=== PATIENT | female | born 2005 | race Caucasian/White ===

== ENCOUNTER 2025-07-09 14:17 | Outpatient (CLI) | payer BC, SELFPAY ==
--- NOTE | 2025-07-09 15:00 | CRLHL7_ITS ---
For Patients: As a result of the Cures Act, medical imaging exams and procedure reports are released immediately into your electronic medical record. You may view this report before your referring provider. If you have questions, please contact your health care provider. OB ULTRASOUND BARTOLOME by US: 08/09/2025. GA: 35 w, 4 d. Single. Comparison: Outside facility. INDICATION: Measuring small for dates. TECHNIQUE: Real time grayscale imaging of the fetus was performed. Transabdominal. CERVIX: Not visualized. POSITIONING: Breech. AMNIOTIC FLUID: 4.4 cm. SDP (N: greater than 2 x 1 cm) BIOPHYSICAL PROFILE: 2: Gross body movements 2: tone 2: Respiratory activity 2: Amniotic fluid SDP (N: greater than 2 x 1 cm) 8/8: Total score PLACENTA: Technique: Transabdominal. PLACENTA POSITION: Posterior. DOPPLER: heart rate: 142 bpm. Umbilical artery: 1.9-2.2 S/D. Greater than 34 w=less than 3.5. BIOMETRY: BPD: 7.7 cm. 30 w, 5 d, <3%. HC: 30.5 cm. 33 w, 6 d, <3%. AC: 28.2 cm. 32 w, 2 d, <3%. FL: 6.0 cm. 31 w, 3 d, <3%. FL/AC ratio: 21.40%. HC/AC ratio: 1.08. EFW: 1888g. Weight: 4 lbs., 3 oz. age by this US: 32 w, 1 d. BARTOLOME by this US: 09/02/2025. Percentile by BARTOLOME: <3%. IMPRESSION: 1. Sonographic gestational age 32 weeks 1 day and sonographic due date 09/02/2025. Sonographic age is 24 days behind the clinical age. 2. Estimated weight less than 3rd percentile. All biometrics are less than 3rd percentile. 3. Biophysical profile score 8/8. 4. Spectral Doppler evaluation of the umbilical artery performed. S/D ratio 2.2. Huy Weinstein M.D. Diagnostic Radiologist [email or web address] ANIKET/tia weber/Dictated by: Huy Weinstein MD @ 07/09/2025 5:31:00 PM (Electronically Signed)
== END 2025-07-09 14:18 | disposition home or self-care (01) ==
LOC: US 14:18
PROVIDERS: PCP Student in an Organized Health Care Education/Training Program; Visit Provider Obstetrics & Gynecology
DX: O36.5930 Maternal care for other known or suspected poor fetal growth, third trimester, not applicable or unspecified (principal); Z3A.35 35 weeks gestation of pregnancy
CPT/HCPCS: 76815; 76819; 76820

== ENCOUNTER 2025-07-13 18:29 | Inpatient (IN) | payer BC, SELFPAY ==
[2025-07-13] VITALS (22 sets, daily range): BP systolic 111–169; BP diastolic 63–106; PULSE 63–98; RESP 12–22; TEMP 36.6–36.8; O2SAT 95–98; BMI 22.6
[2025-07-13 17:41] LABS: Appearance Urine Clear (Clear)
[2025-07-13 17:49] LABS: Amnisure Rom* POSITIVE
--- NOTE | 2025-07-13 18:29 | PM.OBPRCCS ---
Procedure Date of procedure: 07/13/25 Pre-op diagnosis: 1. 36 1/7 weeks 2. Spontaneous rupture of membranes 3. breech presentation 4. IUGR Post-op diagnosis: same Procedure Done: only Will [facility] bill your pro fee for this procedure?: Yes Blood Loss Measurement Type: QBL Bakri Used: No IV fluids (mL): 900 Urine Output (mL): 200 Urine Output Comment: clear Surgeon: Dayami Beauchamp MD Anesthesia Type: Spinal and TAP Block Findings: Live-born female, dara breech presentation, Apgars 9 and 9 at 1 and 5 minutes respectively. Weight 4 lb 13 oz. Normal-appearing uterus, ovaries, and fallopian tubes. Procedure Name: Primary low transverse section. Procedure Description: After obtaining informed consent, the patient was taken to the operating room where spinal anesthesia was obtained and found to be adequate. She was prepared and draped in the normal sterile fashion in the dorsal supine position with a leftward tilt. A Pfannenstiel skin incision was made with a scalpel. This incision was carried down to the underlying layer of fascia with the Bovie. The fascia was incised in the midline and the incision extended laterally. The superior and inferior aspects of the fascial incision were grasped with Sergio clamps, elevated and the underlying rectus muscles dissected off sharply and with electrocautery. The rectus muscles were then in the midline. The underlying peritoneum was entered bluntly and extended via blunt finger fractionation with good visualization of the bladder. The Jona O retractor was then placed into the incision. The lower uterine segment was then incised in a transverse fashion with the scalpel. Upon entry into the uterus, clear amniotic fluid was noted. The uterine incision was extended laterally with blunt finger fractionation. The infant's breech was delivered atraumatically, followed by the remainder of the 's body in had while maintaining neck flexion. The nose and mouth were suctioned with the bulb suction. The cord was doubly clamped and cut after 40 second delay, and the infant was handed off the field to Dr. Ramires for evaluation. The placenta was delivered spontaneously with umbilical cord traction and fundal massage. The uterus was cleared of all clots and debris. The uterine incision was reapproximated in a running locking fashion with a 0 chromic suture. A 2nd layer of the same suture was used to imbricate in horizontal fashion. The gutters were inspected and clots removed. All instruments and retractors were removed. The anterior peritoneum was reapproximated in a running fashion with a 3-0 Vicryl suture. The subfascial tissues were carefully inspected and hemostasis assured. The fascia was reapproximated in a running fashion with a looped 0 Maxon suture. The subcutaneous tissues were copiously irrigated. Hemostasis was assured. The skin was closed in a subcuticular fashion with 4-0 Vicryl. Surgical glue and dressing were applied. A TAP block was administered by the SYSTEMS SOFTWARE SPECIALIST. The patient tolerated the procedure well. Sponge, lap, needle, and instrument counts were reported as correct x2. The patient was taken to the recovery room, awake, and in stable condition. She did receive two grams of IV Ancef preoperatively and 30 mg IV Toradol at the conclusion of the procedure. Complications: None. Pathology: specimen obtained, sent to pathology (Placenta) Surgery Debrief Performed: Yes Condition: stable Disposition: floor
[2025-07-13 18:38] LABS: Hematocrit* 31.7 % (33.0-51.0); Hemoglobin* 10.5 gm/dL (12.0-16.0); Immature Granulocytes Pct Auto 6.5 %; Mean Corpuscular HGB Conc 33 gm/dL (32-36); Mean Corpuscular Hemoglobin 30 pg (26-34); Mean Corpuscular Volume 90 fL (80-100); RDW Coefficient of Variation % 14.4 % (11.5-15.5); Red Blood Count* 3.52 m/uL (4.00-5.20); White Blood Count* 13.13 K/uL (4.50-11.00)
[2025-07-13] MEDS: LACTATED RINGERS 1000 ML 1,000 ML 1200 ML IV (18:38)
[2025-07-13] MEDS: AZITHROMYCIN 500 MG in 0.9 % SODIUM CHLORIDE 250 ml 250 ML 255 MG IVPB (18:40)
[2025-07-13 18:47] LABS: Immature Granulocytes Abs Auto 0.90 K/uL (0.00-0.30); Lymphocytes Absolute Auto 2.30 K/uL (0.90-2.90); Slide Review Reflex No
--- NOTE | 2025-07-13 18:47 | P.OBHP_ITS ---
OB - H&P: HPI Labor/Induction History of Present Illness Date Seen: 07/13/25 Chief Complaint: Leakage of fluid Chief complaint: Maternity Narrative: Cecilia Gonzales is a 19 year old female 1 para 0000 at 36 weeks 1 day gestation by LMP confirmed with 7wk US, who presents with vaginal leaking. Reports that she started to have intermittent clear vaginal discharge starting at approximately 12PM today. She called into triage who recommended that she present to be evaluated in triage. History of Present Dating criteria: based on LMP care: good care Ultrasounds: normal 1st trimester US, normal mid trimester US and abnormal US findings Abnormal ultrasound findings: IUGR <3%ile during third trimester US Labs Blood type: A (+) positive Rubella: immune RPR/VDLR: nonreactive GBS status: unknown HBsAG: negative Review of Systems Status of ROS: Reports: 6 or more systems reviewed and unremarkable except as noted in History and below Meds Home Medications and Allergies Home Medications ?Medication ?Instructions ?Recorded ?Confirmed ?Type aspirin 81 mg tablet,delayed 81 mg PO DAILY 07/09/25 1 History release escitalopram oxalate 10 mg tablet 10 mg PO QAM 5 07/13/25 History ferrous sulfate 325 mg (65 mg 325 mg PO DAILY 07/09/25 07/13/25 History iron) tablet (FeroSul) vitamins no.154-ferrous tab PO 07/09/2507/11 History fumarate 27 mg-folic acid 1 mg tablet valacyclovir 500 mg tablet 500 mg PO BID 07/09/2506/20 History Allergies Allergy/AdvReac Type Severity Reaction Status Date / Time amoxicillin Allergy Intermediate Vomiting Verified 07/11/25 09:07 OB - H&P: Exam Physical Exam: Vital signs: Temp Pulse Resp BP Pulse Ox 98.2 F 89 12 123/73 97 07/13/25 16:57 07/13/25 16:57 07/13/25 16:57 07/13/25 16:57 07/13/25 16:57 Constitutional: Constitutional: no acute distress Routine HEENT Exam: Head: Present normocephalic Eye: Present normal appearance ENT: Present mucous membranes moist Routine Neck Exam: Neck: Present full ROM Routine Respiratory Exam: Respiratory: Present CTA bilaterally Routine Cardiovascular Exam: Cardiovascular: RRR, S1 and S2 Routine Abdominal Exam: Comments: gravid Routine Exam: Perineum Description: Normal Detailed Labor and Delivery Exam: Patient Gravid: yes Routine Extremities Exam: Extremities: Present normal inspection Routine Neurological Exam: Present alert Detailed Psychiatric Exam: Mood and affect: Present flat OB - Results Labs Labs: Urine 07/13/25 Range/Units 17:30 Urine Color Yellow (Yellow) Urine Appearance Clear (Clear) Urine pH 7.0 (5.0-8.5) Ur Specific [place] 1.010 (1.000-1.030) Urine Protein Negative (Negative) Urine Glucose (UA) Negative (Negative) OB - Problem Based A/P Additional Plan (1) premature rupture of membranes (PPROM) with onset of labor within 24 hours of rupture in third trimester, antepartum: Problem details: Cecilia Gonzales is a 19 year old female 1 para 0000 at 36 weeks 1 day gestation by LMP confirmed with 7wk US, who was admitted 07/13/25 for premature rupture of membranes. Status: Acute Plan: Transfer to [facility] due to need for section for breech presentation. (2) growth restriction: Problem details: Diagnosed at 35 weeks gestational age. All growth percentiles less than 3%. Status: Acute (3) Malpresentation of fetus: Problem details: Breech presentation in third trimester, reconfirmed breech presentation on admission. Status: Acute (4) Anemia affecting : Problem details: Last hemoglobin 10.7 on 06/19/25. On oral iron supplementation Status: Acute Plan: Consider hgb recheck post section. (5) Genital herpes: Problem details: History of genital herpes. No active lesions on exam on admission. Patient started valtrex yesterday for suppression. Status: Acute (6) Opioid use disorder in remission: Problem details: In remission for about 1.5 years. No longer on MAT. No opioid use during . Status: Acute Plan: Encourage adequate pain control. Caution with discharge with opioids. (7) Depression: Problem details: Controlled by 10mg lexapro. No acute mood concerns on presentation. Status: Acute Plan: Recommend continuing lexapro while inpatient. (8) Tobacco use affecting , antepartum: Problem details: Quit smoking during . Status: Acute Plan Patient will transfer care to [facility] for unscheduled primary section due to breech malpresentation. provider to attend delivery due to at 36wks, breech presentation, and IUGR < 3%ile. Delivery/Labor/Induction Plan Plan: Section
[2025-07-13 19:51] LABS: Cannabinoid Screen Urine Negative (Negative); Methamphetamines Screen Urine Negative (Negative); Tricyclic Antidepressant Urine Negative (Negative)
[2025-07-13] MEDS: LACTATED RINGERS 1000 ML 1,000 ML 125 ML IV ×2 (20:08→22:35)
--- NOTE | 2025-07-13 21:34 | P.ANES_ITS ---
Anesthesia Charges Start Date/Time Anesthesia Start Date: 07/13/25 Anesthesia Start Time: 19:45 Stop Date/Time Anesthesia Stop Date: 07/13/25 Anesthesia Stop Time: 21:16 Coding CPT Codes CPT Codes: ANESTH CS DELIVERY - 56987 ([id number]) P2 - PATIENT W/MILD SYST DISEASE, QZ - LEATHER PRODUCTION WORKER SVC W/O LINE MAINTAINER SECTION BY
--- NOTE | 2025-07-13 21:34 | W.ANESCHARGE ---
Anesthesia Charges Start Date/Time Anesthesia Start Date: 07/13/25 Anesthesia Start Time: 19:45 Stop Date/Time Anesthesia Stop Date: 07/13/25 Anesthesia Stop Time: 21:16 Coding CPT Codes CPT Codes: ANESTH CS DELIVERY - 96769 ([id number]) P2 - PATIENT W/MILD SYST DISEASE, QZ - RADIO TIME BUYER SVC W/O RETANNED LEATHER ROLLER BY
--- NOTE | 2025-07-13 21:35 | W.PM.NB ---
Nerve Block Nerve Block Time Seen by Provider: 21:05 Date Seen: 07/13/25 Type of block requested by surgeon for post-operative analgesia: TAP Side: bilateral Time out performed: Yes Verification of patient name: Yes Verification of date of : Yes Site marking: site marked Name of person performing procedure: Armando Johnson Continuous monitoring Was continuous monitoring of O2 sat, B/P, production floater, recorded every 15 minutes?: Yes Procedure Checklist: sterile prep, needles and gloves Ultrasound guided. Images saved: Yes Medications given in 5ml increments after negative aspiration: Marcaine %: 0.25 mL: 30 Needle gauge: 20 and Exparel mL: 10 Needle gauge: 20 Patient tolerated procedure well: Yes Additional comments: Injected in 5 mL increments after negative aspiration Block Charges Block Charge (with Pro Fee): TAP Bilateral Use of Ultrasound Machine for Block: Yes- US Guidance/pain block
[2025-07-13] MEDS: LABETALOL HCL 5 MG/ML inj IVP (22:39)
[2025-07-13] MEDS: MAGNESIUM IV 4 GM/100 ML PIGGYBACK IVPB (22:46)
[2025-07-13 22:55] LABS: Hematocrit* 33.0 % (33.0-51.0); Hemoglobin* 11.1 gm/dL (12.0-16.0); Mean Corpuscular HGB Conc 34 gm/dL (32-36); Mean Corpuscular Hemoglobin 30 pg (26-34); Mean Corpuscular Volume 90 fL (80-100); Red Blood Count* 3.67 m/uL (4.00-5.20); White Blood Count* 13.50 K/uL (4.50-11.00)
--- NOTE | 2025-07-13 22:57 | P.OBPN_ITS ---
OB - PN:Subj Subjective Date Seen: 07/13/25 Narrative: Notified by nursing staff of persistent severe range blood pressures, 160s over 100s. OB - PN: Obj Exam Physical Exam: Vital signs: Temp Pulse Resp BP Pulse Ox O2 Del Method 98 F 65 18 144/86 H 98 Room Air 07/13/25 21:15 07/13/25 22:33 07/13/25 22:33 07/13/25 22:47 07/13/25 22:33 07/13/25 21:42 Constitutional: Constitutional: no acute distress Routine Respiratory Exam: Comments: Normal respiratory effort Routine Cardiovascular Exam: Cardiovascular: Present RRR Routine Abdominal Exam: Fundus: Present firm Routine Extremities Exam: Extremities: Present normal inspection OB - PN: Obj Data Labs Labs: Laboratory Results - last 24 hr 07/13/25 07/13/25 07/13/25 17:30 18:30 19:35 WBC 13.13 H RBC 3.52 L Hgb 10.5 L Hct 31.7 L MCV 90 MCH 30 MCHC 33 RDW Coeff of Sarah 14.4 Plt Count 234 Neut % (Auto) 66.9 Lymph % (Auto) 17.4 L [place] % (Auto) 8.5 Eos % (Auto) 0.5 Baso % (Auto) 0.2 Neut # (Auto) 8.80 H Lymph # (Auto) 2.30 [place] # (Auto) 1.10 H Eos # (Auto) 0.10 Baso # (Auto) 0.00 Abs Immat Gran (auto) 0.90 H Imm/Tot Granulo (auto) 6.5 Urine Color Yellow Urine Appearance Clear Urine pH 7.0 Ur Specific [place] 1.010 Urine Protein Negative Urine Glucose (UA) Negative Urine Ketones Negative Urine Blood Negative Urine Nitrite Negative Urine Bilirubin Negative Urine Urobilinogen 0.2 Ur Leukocyte Esterase Negative Membrane Rupture POSITIVE Urine Opiates Screen Negative Ur Oxycodone Screen Negative Urine Methadone Screen Negative Ur Barbiturates Screen Negative U Tricyclic Antidepress Negative Ur Phencyclidine Scrn Negative Ur Amphetamines Screen Negative U Methamphetamines Scrn Negative U Benzodiazepines Scrn Negative Urine Cocaine Screen Negative U Marijuana (THC) Screen Negative Ur Drug Screen Comment See Note Blood Type A Positive Antibody Screen NEGATIVE OB - PN: A/P Delivery Assessment and Plan (1) Severe preeclampsia: Status: Acute Assessment and Plan: Labs were obtained, and are pending. Labetalol per protocol to treat severe range hypertension. We will initiate magnesium sulfate seizure prophylaxis for 24 hours. (2) Status post primary low transverse section: Problem details: for breech, suspected IUGR Status: Acute Plan day: 0 Plan: routine care
[2025-07-13 23:01] LABS: Slide Review Reflex No
[2025-07-13 23:02] LABS: Alanine Aminotransferase* 25 U/L (4-35); Aspartate Amino Transferase* 36 U/L (12-35); Blood Urea Nitrogen* 5 mg/dL (5-24); Creatinine* 0.4 mg/dL (0.6-1.2); Est. Creatinine Clearance* 187.13; Estimated Glomerular Filt Rate 146 ml/min
[2025-07-13] MEDS: ACETAMINOPHEN 500 MG TABLET 1000 MG PO (23:11)
[2025-07-13] MEDS: MAGNESIUM Infusion 40 GM/1,000 ML IV.SOLN IVPB (23:16)
[2025-07-14] VITALS (14 sets, daily range): BP systolic 100–124; BP diastolic 50–79; PULSE 69–88; RESP 16–18; TEMP 36.4–37; O2SAT 96–99
[2025-07-14] MEDS: ACETAMINOPHEN 500 MG TABLET 1000 MG PO ×4 (05:08→23:20)
[2025-07-14 05:18] LABS: Hematocrit* 29.7 % (33.0-51.0); Hemoglobin* 10.0 gm/dL (12.0-16.0); Mean Corpuscular HGB Conc 34 gm/dL (32-36); Mean Corpuscular Hemoglobin 30 pg (26-34); Mean Corpuscular Volume 90 fL (80-100); Red Blood Count* 3.31 m/uL (4.00-5.20); White Blood Count* 20.79 K/uL (4.50-11.00)
[2025-07-14 05:22] LABS: Alanine Aminotransferase* 24 U/L (4-35); Aspartate Amino Transferase* 33 U/L (12-35); Blood Urea Nitrogen* 5 mg/dL (5-24); Creatinine* 0.5 mg/dL (0.6-1.2); Est. Creatinine Clearance* 149.70; Estimated Glomerular Filt Rate 138 ml/min; Slide Review Reflex No
[2025-07-14] MEDS: DOCUSATE SODIUM 100 MG CAPSULE PO (09:00)
[2025-07-14] MEDS: ESCITALOPRAM 10 MG TABLET PO (09:00)
[2025-07-14 10:46] LABS: Hematocrit* 30.2 % (33.0-51.0); Hemoglobin* 10.1 gm/dL (12.0-16.0); Mean Corpuscular HGB Conc 33 gm/dL (32-36); Mean Corpuscular Hemoglobin 30 pg (26-34); Mean Corpuscular Volume 90 fL (80-100); Red Blood Count* 3.36 m/uL (4.00-5.20); White Blood Count* 19.77 K/uL (4.50-11.00)
[2025-07-14] MEDS: LACTATED RINGERS 1000 ML 1,000 ML 125 ML IV (11:00)
[2025-07-14 11:05] LABS: Alanine Aminotransferase* 27 U/L (4-35); Aspartate Amino Transferase* 35 U/L (12-35); Blood Urea Nitrogen* 5 mg/dL (5-24); Creatinine* 0.5 mg/dL (0.6-1.2); Est. Creatinine Clearance* 149.70; Estimated Glomerular Filt Rate 138 ml/min; Slide Review Reflex No
--- NOTE | 2025-07-14 13:21 | PM.OBPNVD1 ---
OB - PN:Subj Subjective Date Seen: 07/14/25 Interval history: [facility] patient, Dr. Flaherty. Patient comments OB post-: no complaints, pain well controlled, tolerating diet and flatus present Narrative: The patient is a 19-year-old 1 now para 0101 who is postoperative day #1 following a primary low transverse section last evening for breech presentation and SROM at 36 1/7 weeks gestation. The delivery was uncomplicated. , she experienced severe range blood pressures that required treatment. Magnesium sulfate infusion was initiated at 10:46 p.m. last evening, and she was also started on nifedipine ER 30 mg p.o. b.i.d.. She has been experiencing a brisk diuresis, with total urine output 4875 mL in the last 24 hours. The Mena catheter has not yet been removed due to the brisk diuresis. She generally feels well. Her pain is been well controlled with Tylenol, ibuprofen, and oxycodone. OB - PN: Obj Exam Physical Exam: Vital signs: Temp Pulse Resp BP Pulse Ox O2 Del Method 97.5 F L 84 16 107/66 97 Room Air 07/14/25 08:38 07/14/25 11:03 07/14/25 11:03 07/14/25 11:03 07/14/25 08:38 07/14/25 08:38 Constitutional: Constitutional: no acute distress Routine Neck Exam: Neck: Present normal inspection Routine Respiratory Exam: Respiratory: Present CTA bilaterally; Absent respiratory distress Routine Cardiovascular Exam: Cardiovascular: Present RRR; Absent murmur Routine Abdominal Exam: Abdominal: Present soft; Absent tenderness Fundus: Present firm Routine Extremities Exam: Extremities: Present normal inspection and pedal edema; Absent calf tenderness Routine Neurological Exam: Neurological: Present alert and oriented X3 Routine Psychiatric Exam: Psychiatric: Present normal affect Wound Management: Method: suture Examination: Present dressed, clean and dry Comments: Pfannenstiel incision OB - PN: Obj Data Labs Labs: Laboratory Results - last 24 hr 07/13/25 07/13/25 07/13/25 17:30 18:30 19:35 WBC 13.13 H RBC 3.52 L Hgb 10.5 L Hct 31.7 L MCV 90 MCH 30 MCHC 33 RDW Coeff of Sarah 14.4 Plt Count 234 Neut % (Auto) 66.9 Lymph % (Auto) 17.4 L [place] % (Auto) 8.5 Eos % (Auto) 0.5 Baso % (Auto) 0.2 Neut # (Auto) 8.80 H Lymph # (Auto) 2.30 [place] # (Auto) 1.10 H Eos # (Auto) 0.10 Baso # (Auto) 0.00 Abs Immat Gran (auto) 0.90 H Imm/Tot Granulo (auto) 6.5 BUN Creatinine Estimated Creat Clear Estimated GFR Magnesium AST ALT Urine Color Yellow Urine Appearance Clear Urine pH 7.0 Ur Specific [place] 1.010 Urine Protein Negative Urine Glucose (UA) Negative Urine Ketones Negative Urine Blood Negative Urine Nitrite Negative Urine Bilirubin Negative Urine Urobilinogen 0.2 Ur Leukocyte Esterase Negative Membrane Rupture POSITIVE Urine Opiates Screen Negative Ur Oxycodone Screen Negative Urine Methadone Screen Negative Ur Barbiturates Screen Negative U Tricyclic Antidepress Negative Ur Phencyclidine Scrn Negative Ur Amphetamines Screen Negative U Methamphetamines Scrn Negative U Benzodiazepines Scrn Negative Urine Cocaine Screen Negative U Marijuana (THC) Screen Negative Ur Drug Screen Comment See Note Blood Type A Positive Antibody Screen NEGATIVE 07/13/25 07/14/25 07/14/25 22:42 04:50 10:40 WBC 13.50 H 20.79 H 19.77 H RBC 3.67 L 3.31 L 3.36 L Hgb 11.1 L 10.0 L 10.1 L Hct 33.0 29.7 L 30.2 L MCV 90 90 90 MCH 30 30 30 MCHC 34 34 33 RDW Coeff of Sarah Plt Count 220 229 247 Neut % (Auto) Lymph % (Auto) [place] % (Auto) Eos % (Auto) Baso % (Auto) Neut # (Auto) Lymph # (Auto) [place] # (Auto) Eos # (Auto) Baso # (Auto) Abs Immat Gran (auto) Imm/Tot Granulo (auto) BUN 5 5 5 Creatinine 0.4 L 0.5 L 0.5 L Estimated Creat Clear 187.13 149.70 149.70 Estimated GFR 146 138 138 Magnesium 5.8 H* 6.3 H* AST 36 H 33 35 ALT 25 24 27 Urine Color Urine Appearance Urine pH Ur Specific [place] Urine Protein Urine Glucose (UA) Urine Ketones Urine Blood Urine Nitrite Urine Bilirubin Urine Urobilinogen Ur Leukocyte Esterase Membrane Rupture Urine Opiates Screen Ur Oxycodone Screen Urine Methadone Screen Ur Barbiturates Screen U Tricyclic Antidepress Ur Phencyclidine Scrn Ur Amphetamines Screen U Methamphetamines Scrn U Benzodiazepines Scrn Urine Cocaine Screen U Marijuana (THC) Screen Ur Drug Screen Comment Blood Type Antibody Screen OB - PN: A/P Delivery Assessment and Plan (1) Severe preeclampsia: Problem details: On magnesium sulfate infusion times 24 hours and nifedipine ER 30 mg b.i.d. Status: Acute (2) Status post primary low transverse section: Problem details: for breech, suspected IUGR Status: Acute Plan day: 1 Plan: routine care Comments: Magnesium sulfate infusion will be discontinued after 24 hours. Serial labs will be discontinued at that time as well.
[2025-07-14 15:53] LABS: Strep B DNA Probe POSITIVE (Negative)
[2025-07-14 17:20] LABS: Hematocrit* 29.8 % (33.0-51.0); Hemoglobin* 9.9 gm/dL (12.0-16.0); Mean Corpuscular HGB Conc 33 gm/dL (32-36); Mean Corpuscular Hemoglobin 30 pg (26-34); Mean Corpuscular Volume 91 fL (80-100); Red Blood Count* 3.29 m/uL (4.00-5.20); White Blood Count* 15.80 K/uL (4.50-11.00)
[2025-07-14 17:28] LABS: Slide Review Reflex No
[2025-07-14 17:36] LABS: Alanine Aminotransferase* 18 U/L (4-35); Aspartate Amino Transferase* 29 U/L (12-35); Blood Urea Nitrogen* 5 mg/dL (5-24); Creatinine* 0.6 mg/dL (0.6-1.2); Est. Creatinine Clearance* 124.75; Estimated Glomerular Filt Rate 133 ml/min
[2025-07-14] MEDS: MAGNESIUM Infusion 40 GM/1,000 ML IV.SOLN IVPB (18:37)
[2025-07-14] MEDS: SIMETHICONE 80 MG TAB.CHEW PO (19:30)
[2025-07-14 19:50] LABS: Strep B Susceptibility Needed? Yes
[2025-07-14] MEDS: VALACYCLOVIR HCL 500 MG TABLET PO (21:01)
[2025-07-14 22:53] LABS: Hematocrit* 32.4 % (33.0-51.0); Hemoglobin* 10.6 gm/dL (12.0-16.0); Mean Corpuscular HGB Conc 33 gm/dL (32-36); Mean Corpuscular Hemoglobin 30 pg (26-34); Mean Corpuscular Volume 91 fL (80-100); Red Blood Count* 3.56 m/uL (4.00-5.20); White Blood Count* 16.60 K/uL (4.50-11.00)
[2025-07-14 23:01] LABS: Slide Review Reflex No
[2025-07-14 23:07] LABS: Alanine Aminotransferase* 20 U/L (4-35); Aspartate Amino Transferase* 33 U/L (12-35); Blood Urea Nitrogen* 6 mg/dL (5-24); Creatinine* 0.6 mg/dL (0.6-1.2); Est. Creatinine Clearance* 124.75; Estimated Glomerular Filt Rate 133 ml/min
[2025-07-15] VITALS (7 sets, daily range): BP systolic 100–122; BP diastolic 58–81; PULSE 64–80; RESP 12–16; TEMP 36.8–37.2; O2SAT 95–97
[2025-07-15] MEDS: ACETAMINOPHEN 500 MG TABLET 1000 MG PO ×3 (05:46→18:07)
[2025-07-15] MEDS: VALACYCLOVIR HCL 500 MG TABLET PO (09:17)
[2025-07-15] MEDS: DOCUSATE SODIUM 100 MG CAPSULE PO (09:17)
[2025-07-15] MEDS: IBUPROFEN 600 MG TABLET PO ×3 (09:17→23:07)
[2025-07-15] MEDS: ESCITALOPRAM 10 MG TABLET PO (09:17)
--- NOTE | 2025-07-15 09:56 | PC.SOCIAL ---
Social Service Consult: SW met with patient to check-in and see if she needs any resources/supports. Patient reports she is doing well and has no concerns. Patient states this is the first grandchild and they have support from her family and partner's family. SW briefly discussed PMADS and patient states she is already connected with support for this and is taking Lexapro. SW to assist if needs/questions arise.
--- NOTE | 2025-07-15 17:12 | PM.OBPNVD1 ---
OB - PN:Subj Subjective Date Seen: 07/15/25 Interval history: [facility] patient, Dr. Flaherty. Narrative: The patient is a 19-year-old 1 now para 0101 who is postoperative day #2 s/p a primary low transverse section last evening for breech presentation and SROM at 36 1/7 weeks gestation. The delivery was uncomplicated. She was diagnosed with pre-eclampsia with severe features based on severe ranging BP. Currently, on magnesium sulfate infusion for seizure ppx until 10:46 p.m. Additionally, she was also started on nifedipine ER 30 mg p.o. b.i.d. Overnight patient had no complaints. Her pain is well controlled on oral pain medications. She is tolerating a regular diet. She has passed flatus. She is ambulating without difficulty. Lochia is scant. She is urinating without jeffery. Patient denies chest pain, SOB, n/v, headache, RUQ pain, vision changes, dizziness. OB - PN: Obj Exam Physical Exam: Vital signs: Temp Pulse Resp BP Pulse Ox O2 Del Method 98.2 F 80 12 100/58 L 95 Room Air 07/15/25 08:49 07/15/25 12:06 07/15/25 12:06 07/15/25 12:06 07/15/25 12:06 07/15/25 12:06 Narrative: Physical exam: General: No acute distress Psych: Alert and oriented x4, full affect HEENT: Normocephalic, atraumatic Heart: Regular rate and rhythm, no murmur rub or gallop Lungs: Clear to auscultation bilaterally Abdomen: Normoactive bowel sounds, soft, no tenderness, rebound, or guarding. Incision(s): Appropriately tender to palpation. Clean, dry, and intact. No erythema, induration, or abnormal discharge/breakdown Skin: No lesions or rashes Lower extremities: Trace bilateral lower extremity edema Pelvic exam: Scant lochia on pad OB - PN: Obj Data Labs Labs: Laboratory Results - last 24 hr 07/14/25 07/14/25 17:14 22:49 WBC 15.80 H 16.60 H RBC 3.29 L 3.56 L Hgb 9.9 L 10.6 L Hct 29.8 L 32.4 L MCV 91 91 MCH 30 30 MCHC 33 33 Plt Count 216 255 BUN 5 6 Creatinine 0.6 0.6 Estimated Creat Clear 124.75 124.75 Estimated GFR 133 133 Magnesium 6.9 H* 7.5 H* AST 29 33 ALT 18 20 OB - PN: A/P Delivery Assessment and Plan (1) Severe preeclampsia: Problem details: On magnesium sulfate infusion times 24 hours and nifedipine ER 30 mg b.i.d. Status: Acute Assessment and Plan: Pre-Eclampsia with SF - Based on severe raning BP requiring IV antihypertensive - BPs overnight: 100-110/60-70s - Symptoms: denies - Magnesium: on Magnesium for seizure ppx - IV antihypertensives: s/p 20 mg of IV labetalol 9 - PO antihypertensives: Nifedipine XL 30 mg BID - Pre-eclampsia labs on 07/14/26 @ 2245: Plt 255 Cr 0.6 ALT 20 AST 33 - UOP: 3.09 cc/kg/hr (2) Status post primary low transverse section: Problem details: for breech, suspected IUGR Status: Acute
[2025-07-16 01:26] VITALS: BP 120/76; PULSE 78; RESP 16; TEMP 37.2; O2SAT 96
[2025-07-16] MEDS: ACETAMINOPHEN 500 MG TABLET 1000 MG PO ×2 (01:28→08:42)
[2025-07-16 04:30] VITALS: BP 127/78; PULSE 63; RESP 16; TEMP 36.9; O2SAT 96
[2025-07-16] MEDS: IBUPROFEN 600 MG TABLET PO ×2 (04:33→11:37)
[2025-07-16 08:31] VITALS: BP 142/89; PULSE 62; RESP 16; TEMP 37.1; O2SAT 98
[2025-07-16] MEDS: DOCUSATE SODIUM 100 MG CAPSULE PO (08:41)
[2025-07-16] MEDS: ESCITALOPRAM 10 MG TABLET PO (08:42)
[2025-07-16 08:44] VITALS: BP 132/87
--- NOTE | 2025-07-16 11:07 | PM.OBDSVD1 ---
DS: Providers Provider Date Seen: 07/16/25 Date of admission: 07/13/25 18:29 Primary care physician: Janie Kelley MD Admitting Clinician: Dayami Beauchamp MD Consults: 07/13/25 18:10 Consult to [employer] [CONS] Routine Comment: Reason for Consult:: Home Health Assessment Attending Physician on discharge: Claudia Hewitt MD Date of Discharge: 07/16/25 DS: Diagnosis Discharge Diagnosis (1) Status post primary low transverse section: Status: Acute Problem details: for breech, suspected IUGR (2) Severe preeclampsia: Status: Acute Problem details: On magnesium sulfate infusion times 24 hours and nifedipine ER 30 mg b.i.d. (3) Opioid use disorder in remission: Status: Acute Problem details: In remission for about 1.5 years. No longer on MAT. No opioid use during . (4) Depression: Status: Acute Problem details: Controlled by 10mg lexapro. No acute mood concerns on presentation. (5) growth restriction: Status: Acute Problem details: Diagnosed at 35 weeks gestational age. All growth percentiles less than 3%. Exam Narrative: Exam Narrative: General: Pleasant, no acute distress Heart: Regular rate and rhythm, no murmur or gallop Lungs: Clear to auscultation bilaterally Abdomen: Soft, nontender, fundus well below umbilicus, normoactive bowel sounds Lower extremities: No edema or erythema Const: Vital Signs, click to edit/add: Vital Signs - 24 hr 07/15/25 12:06 07/15/25 16:30 07/15/25 20:24 Temperature 98.6 F 98.9 F Pulse Rate [Pulse Oximeter] 80 64 73 Respiratory Rate 12 16 16 Blood Pressure [Le ft Arm] 100/58 L 115/73 122/81 Pulse Oximetry 95 97 97 Oxygen Delivery Me thod Room Air Room Air Room Air 07/16/25 01:26 07/16/25 04:30 07/16/25 08:31 Temperature 98.9 F 98.5 F 98.7 F Pulse Rate [Pulse Oximeter] 78 63 62 Respiratory Rate 16 16 16 Blood Pressure [Le ft Arm] 120/76 127/78 142/89 H Pulse Oximetry 96 96 98 Oxygen Delivery Me thod Room Air Room Air Room Air 07/16/25 08:44 Temperature Pulse Rate [Pulse Oximeter] Respiratory Rate Blood Pressure [Le ft Arm] 132/87 Pulse Oximetry Oxygen Delivery Me thod OB - DS: Summary Hospital Course Hospital Course: Mona is a 19-year-old G1 now P 0-1-0-1 woman who presented on 07/13/2025 at 36 weeks, 1 day gestation with PPROM. Her was complicated by known growth restriction and breech presentation. She had an unscheduled on day of presentation. She was delivered of a female infant in dara breech presentation, weight 4 lb and 13 oz. Surgery was uncomplicated. She was diagnosed with preeclampsia with severe features shortly after delivery; diagnosis was based on severely elevated blood pressures. She was started on nifedipine ER 30 mg b.i.d. on the evening of 07/13/2025. She received 24 hours of magnesium sulfate infusion for seizure prophylaxis during her course. HELLP labs remained normal. Her last hemoglobin on postoperative day 2 was 10.6. She is breast feeding. Her daughter is doing quite well. She has had 1 mildly elevated blood pressure in the last 24 hours. Pain is managed with oral oxycodone. She is ambulating without difficulty. She is urinating without incident. She has had a bowel movement. Peripartum Data Procedures: Procedures Operation Date: 07/13/25 19:00 Actual Procedure Side Surgeon p Section Not Applicable Dayami Beauchamp MD [place] Infant Gender: Female Time Spent with Patient Time attestation: Total time spent providing and/or coordinating discharge services: Discharge Plan Discharge Disposition: Home, Self-Care Date of Admission: 07/13/25 18:29 Attending Provider on Discharge: Claudia Hewitt Primary Care Provider: Janie Kelley Condition: Stable Anticipated Discharge Date/Time: 07/16/25 14:47 Discharge Medications: New acetaminophen 500 mg Tablet 1,000 mg PO Q6H PRN (Reason: Pain) Qty: 0 0RF docusate sodium 100 mg Capsule 100 mg PO DAILY Qty: 0 0RF ibuprofen 600 mg Tablet 600 mg PO Q6H PRN (Reason: Pain) Qty: 0 0RF Lanolin (HPA) 100 % Cream 1 applic topical Q1H PRNQty: 0 0RF nifedipine 30 mg Tablet Extended Release 30 mg PO BID Qty: 40 0RF oxycodone 5 mg Tablet 5 - 10 mg PO Q4H PRN (Reason: Pain) Qty: 20 0RF Continued escitalopram oxalate 10 mg tablet 10 mg PO QAM PNV no.154-iron fumarate-folic 27 mg iron- 1 mg tablet PO Changed ferrous sulfate [FeroSul] 325 mg (65 mg iron) tablet 325 mg PO Q OTHER DAY Qty: 20 0RF Discontinued valacyclovir 500 mg tablet 500 mg PO BID aspirin 81 mg tablet,delayed release (DR/EC) 81 mg PO DAILY Discharge Orders: Discharge Order (Routine); Ordered 07/16/25 Ordered By: Claudia Hewitt Patient Education: Bupivacaine Liposome (By injection), OB High Blood Pressure DC, OB Over the Counter Medication Information, OB /Breast Feeding Activity Detail: No lifting greater than 20 lbs for 6 weeks. Discharge Diet: Regular Follow Up Appointments: [facility] [Provider Group] Janie Kelley MD [Primary Care Provider, Family Practice] Forms: MyHealth Info Instructions Discharge Comments: Follow-up Tuesday for blood pressure check in clinic
[2025-07-16 12:38] VITALS: BP 119/70; PULSE 88; RESP 16; O2SAT 98
== END 2025-07-16 15:44 | disposition home or self-care (01) | DRG 540 ==
LOC: OB OUT 18:29 → OB 18:29
PROVIDERS: Student in an Organized Health Care Education/Training Program; Admitting Provider Obstetrics & Gynecology; PCP Student in an Organized Health Care Education/Training Program; Visit Provider Obstetrics & Gynecology
PROC: 10D00Z1 Extraction of Products of Conception, Low, Open Approach (ICD-10-PCS; CPT 59514; principal; 2025-07-13 19:00)
DX: O42.013 Preterm premature rupture of membranes, onset of labor within 24 hours of rupture, third trimester (principal); O32.1XX0 Maternal care for breech presentation, not applicable or unspecified; O36.5930 Maternal care for other known or suspected poor fetal growth, third trimester, not applicable or unspecified; O14.15 Severe pre-eclampsia, complicating the puerperium; G89.18 Other acute postprocedural pain; O99.02 Anemia complicating childbirth; D64.9 Anemia, unspecified; O98.32 Other infections with a predominantly sexual mode of transmission complicating childbirth; A60.00 Herpesviral infection of urogenital system, unspecified; O99.344 Other mental disorders complicating childbirth; F32.A Depression, unspecified; F11.21 Opioid dependence, in remission; O99.334 Smoking (tobacco) complicating childbirth; F17.211 Nicotine dependence, cigarettes, in remission; Z3A.36 36 weeks gestation of pregnancy; Z37.0 Single live birth
CPT/HCPCS: 01961; 36415; 64488; 76942; 80306; 81003; 81513; 82565; 83735; 84112; 84450; 84460; 84520; 85018; 85025; 85027; 86592; 86850; 86900; 86901; 87081; 87186; 87481; 87653; 87661; 88307; A4314; A9270; J0456; J0665; J0666; J0690; J1100; J1630; J1885; J2371; J2405; J2590; J3475; J7050; J7120

== ENCOUNTER 2025-07-23 13:02 | Outpatient (CLI) | payer BC, SELFPAY ==
--- NOTE | 2025-07-23 16:23 | W.PM.LAC.MC ---
Consult Note - Mom Date of Visit Date of visit: 07/23/25 Reason for consultation: Assistance Needed Visit Code: Visit Patient's Information Phone number: [phone] : 1 Para: 1 Allergies amoxicillin Allergy (Intermediate, Verified 07/19/25 11:12) Vomiting Mother's Medical History: Medical History (Updated 07/17/25 @ 00:01 by Background Daemon) premature rupture of membranes (PPROM) with onset of labor within 24 hours of rupture in third trimester, antepartum ?O42.013 - premature rupture of membranes, onset of labor within 24 hours of rupture, third trimester (ICD-10) Anemia affecting ?O99.019 - Anemia complicating , unspecified trimester (ICD-10) Tobacco use affecting , antepartum ?O99.330 - Smoking (tobacco) complicating , unspecified trimester (ICD-10) growth restriction Malpresentation of fetus ?O32.9XX0 - Maternal care for malpresentation of fetus, unspecified, not applicable or unspecified (ICD-10) Work Plans: home with baby Delivery Information Delivery type: Primary C/S; Labored Gestational Age: 36+1 Gestational Weight For Age: AGA Weight: 2.19 kg Discharge Weight: 2.01 kg Percentage weight loss: 8 Baby's Information Baby's Age at Visit: 10 days Baby's Provider or Clinic: Dr. Warren Hooker Jaundice: No Past Experience Past Experience: No Current Frequency of Day Feedings: every 2-3 hrs day and night; avg 9x/day Both Breasts: Yes Suck: strong Latch: seems good Length of Time: 5-6 min on 1st side, then 2-3 on 2nd Goals: not sure yet Pumping Pumping: Yes Quantity Pumped: about 2 oz after every other feeding Supplementing EBM Supplement: Yes (taking 2 oz via bottle 5-6 times/day) Formula Supplement: No Baby Elimination Number of Wet Diapers a Day: 8 or more/day Number of BM a Day: 6-7/day Breast/Nipple Condition Breast Information: Breasts are symmetrical with rounded lower quadrants, intramammary distance is less than 1.5 inches. No erythema. Nipples are supple, everted prior to feeding. Breast Shape: Round Engorgement: No Maternal Nipple Condition - Left: Common Nipple Maternal Nipple Condition - Right: Common Nipple Sore Nipples: No Baby Assessment Skin: Normal Tongue/frenulum: Normal/elastic Palate: Average Lips: Relaxed and Symmetrical Jaw Alignment: Symmetrical Mucosa: [employer], moist Onsite Observation Pre-Feed weight: 2.212 kg Attachment/latch-on achieved: Not achieved (baby just fed 1.5 hrs ago and not interested in feeding) Assessments/Interventions Assessments/Interventions: Babe's current feeding routine includes every 2-3 hrs during the day and night Mom breastfeeds her 8-9x/day plus 2 bottles/day after feedings if baby still acts hungry Dad gives baby 3-4 bottles/noc Bottles are 2 oz each Babe not interested in feeding here so unable to assess milk transfer. Mom initially was able to pump 3-4 oz ea breast ea feeding now she is pumping 4 oz total (2 oz/breast) after each feeding. Discussed importance of continuuing to pump to maintain milk supply since we are not sure how much baby is transferring with feedings. Mom is comfortable with the pump and how to manage the settings. Baby is gaining weight well; has surpassed her birthweight at 10 days of age. Mom does report baby latches more easily to her left breast than right; her right nipple is a slightly different shape. Discussed holds she can try on her breast to assist baby to latch; mom will try this at home. Currently has an appt with Peds next week; recommend a f/u appt here in clinic in about 2 weeks to try and do a weighted feed for feeding guidance as baby gets older. Education provided: Early feeding cues to maximize timing of latching, Asymmetric latch technique for wide/deep latch to increase milk, Transfer for baby and increase comfort for mom, Supply/demand nature of milk supply, Need for frequent stimulation/milk removal, Alternative feeding methods (SNS, cup, finger feeding, bottling), Pumping for milk management and Milk collection, storage Follow-Up Suggested follow up: Appointment as needed Time Spent Time spent with patient (min): 60 Meds Home Medications and Allergies Home Medications ?Medication ?Instructions ?Recorded ?Confirmed ?Type escitalopram oxalate 10 mg tablet 10 mg PO QAM 07/09/25 07/19/25 History vitamins no.154-ferrous tab PO 07/09/25 07/19/25 History fumarate 27 mg-folic acid 1 mg tablet acetaminophen 500 mg tablet 1,000 mg (2 x 500 mg) PO Q6H PRN 07/16/25 07/19/25 Rx Pain #0 tabs ferrous sulfate 325 mg (65 mg 325 mg PO Q OTHER DAY #20 tabs 07/16/25 07/19/25 Rx iron) tablet (FeroSul) ibuprofen 600 mg tablet 600 mg PO Q6H PRN Pain #0 tabs 07/16/25 07/19/25 Rx nifedipine 30 mg tablet,extended 30 mg PO BID #40 tabs 07/16/25 07/19/25 Rx release oxycodone 5 mg tablet 5 - 10 mg (1 - 2 x 5 mg) PO Q4H 07/16/25 07/19/25 Rx PRN Pain #20 tabs Allergies Allergy/AdvReac Type Severity Reaction Status Date / Time amoxicillin Allergy Intermediate Vomiting Verified 07/19/25 11:12
== END 2025-07-23 13:03 | disposition home or self-care (01) ==
LOC: OB LAC 13:03
PROVIDERS: PCP Student in an Organized Health Care Education/Training Program; Visit Provider Student in an Organized Health Care Education/Training Program
DX: Z39.1 Encounter for care and examination of lactating mother (principal)
CPT/HCPCS: G0463

== ENCOUNTER 2025-07-25 18:26 | Emergency (ER) | payer BC, SELFPAY ==
--- OUTSIDE RECORDS SUMMARY | 2025-07-25 18:29 | XMS_ITS | Clinical Summary ---
Author Organization [employer] [facility] [employer] Address [address] [place] [id number] Care Team Providers Care Personal Attendant Name Role Phone Janie Kelley MD Primary Care Prov ider Allergies Active Allergy Reactions Criticality Noted Date Comments Amoxicillin-Pot Clavulanate Vomiting 02/21/20 25 Medications PNV no.95/ferrous fum/folic ac ( ORAL) Take by mouth. Active naloxone (Narcan) 4 mg/actuation nasal sprayIndications:O pioid use disorder, severe, in early remission (HC) Inhale 1 Laurel into affected nostril(s) each time if needed for Patient Diff To Arouse or Resp Rate < 8 / min (Overdose). Additional doses may be given every 2 to 3 minutes until emergency medical assistance arrives. 2 Each 01/17/20 25 Active Additional Information Patient not taking.Reported on 05/29/2025 escitalopram oxalate (LEXAPRO) 10 mg tabletIndications: Anxious depression Take 1 Tablet (10 mg) by mouth once daily in the morning. 90 Tablet 1 06/19/20 25 Active aspirin enteric coated 81 mg tabletIndications: Encounter for supervision of normal first in third trimester (HC),High risk teen in third trimester (HC) Take 1 Tablet (81 mg) by mouth once daily with a meal. 90 Tablet 3 06/19/20 25 Active ferrous sulfate 325 mg delayed release tabletIndications: Anemia during (HC) Take 1 Tablet (325 mg) by mouth once daily with a meal. 90 Tablet 3 06/28/20 25 Active valACYclovir (VALTREX) 500 mg tabletIndications: Herpes simplex vulvovaginitis Take 1 Tablet (500 mg) by mouth two times daily. 60 Tablet 07/03/20 25 Active Breast Pump PurchaseIndication s:Encounter for supervision of normal first in third trimester () Electric breast pump for home use. Gestational age at delivery: 35 weeks. Reason for need: Lactatin mother. Length of need: 99 months (lifetime use) 1 Each 07/05/20 25 Active ferrous sulfate 325 mg delayed release tabletIndications: Anemia during (HC) Take 1 Tablet (325 mg) by mouth once daily with a meal. 90 Tablet 3 06/25/20 25 025 Discontin ued(Reord er (E-cancel not sent)) Active Problems Problem Noted Date Diagnosed Date Poor growth affecting management of mother in third trimester 07/09/2025 Encounter for supervision of normal in first trimester 12/13/2024 Overview (12/13/2024): Estimated Date of Delivery: 08/03/25 Patient's last menstrual period was 10/27/2024. GBS: 28wk labs: Last Tdap: 12/27/2016 Last Flu vaccine: 06/25/2010 OB Labs: No Known Allergies OB History Para Term AB Living 1 0 0 0 0 0 SAB IAB Ectopic Multiple Live Births 0 0 0 0 0 # Outcome Date GA Lbr Jonathon/2nd Weight Sex Type Anes PTL Lv 1 Current Past Medical History: . Date Depression 2018 DMDD (disruptive mood dysregulation disorder) () 02/16/2022 Herpes 2020 No Significant Past Medical History Past Surgical History: . Laterality Date NO PREVIOUS SURGERY #1 Problems (from 12/13/24 to present) No problems associated with this episode. Surekha Gastelum RN ....12/13/2024 12:24 PM Opioid use disorder, severe, in early remission 2023 Controlled substance agreeme nt signed By Merari Rondon NP, psychiatry on 11/01/2023 11/10/2023 MARC (generalized anxiety disorder) 11/08/2023 Polysubstance use disorder 11/08/2023 Fentanyl dependence 10/03/2023 Methamphetamine abuse 11/13/2022 Laceration of right hand without foreign body Cannabis use disorder, moderate, dependence 01/19 Herpes simplex vulvovaginitis 10/12/2021 Overview (10/12/2021): September 2021. HSV-1. MDD (major depressive disord er), recurrent episode, moderate 10/13/2017 Post traumatic stress disorder (PTSD) 09/06/2017 Resolved Problems Problem Noted Date Diagnosed Date Resolved Date DMDD (disruptive mood dysregulation disorder) 02/17/20 22 11/13/2024 MARC (generalized anxiety disorder) 10/13/2017 09/04/2019 Encounters Date Type Department Care Team Description 07/25/2025 Nurse Triage [address] [address] Janie Kelley MD Care 07/25/2025 Telephone [facility] [address] [place] [address] Janie Kelley MD 07/23/2025 11:15 AM PRINCIPAL CLOUD ARCHITECT Office Visit [address] [address] Merari Rondon NP Failed Appointment 07/22/2025 11:15 AM PRINCIPAL CLOUD ARCHITECT Ancillary Procedure [address] [address] Arrived 07/22/2025 9:50 AM PRINCIPAL CLOUD ARCHITECT Office Visit [address] [address] Janie Kelley MD Care 07/22/2025 Travel 07/15/2025 Lab Requisition [facility] [phone] Dayami Beauchamp MD 07/13/2025 Orders Only [facility] Scanner 1 scan: (1-Ord) [facility], AUNG DOMINGUEZ , 07/13/2025 07/12/2025 1:00 PM CDT Nurse/Clinic Staff Only [address] [place] [address] Procedure (NST) 07/12/2025 Travel 07/09/2025 Orders Only [facility] Scanner 1 scan: (1-Ord) [facility], OB LIMITIED, 07/09/2025 07/09/2025 Telephone [facility] [address] [place] [address] Janie Kelley MD Appointment 07/03/2025 10:40 AM CDT OB Encounter [address] [place] [address] Janie Kelley MD Care (34 weeks 5 days) 07/03/2025 Travel 06/25/2025 1:15 PM CDT Office Visit [address] [place] [address] Merari Rondon NP Follow Up; Medication Management 06/25/2025 Telephone [facility] [address] [place] [address] Janie Kelley MD Med Change Request (ferrous sulfate ) 06/25/2025 Travel 06/19/2025 10:40 AM CDT OB Encounter [facility] [address] [place] [address] Janie Kelley MD Care (32+5) 06/19/2025 Travel 06/05/2025 10:40 AM CDT OB Encounter [address] [address] Janie Kelley MD Care (30w 5days//nipple discharge?/US?); Medication Management (Herpes medication start?/medication interfering with /) 06/04/2025 10:15 AM CDT Office Visit [address] [address] Merari Rondon NP Follow Up; Medication Management 06/04/2025 Travel 05/29/2025 3:15 PM CDT Office Visit [facility] [address] [place] [address] Yoel Hope MD Depression (Concerns with depression - patient is , but would like medication to treat this if possible) 05/29/2025 Travel 05/23/2025 1:30 PM CDT Nurse/Clinic Staff Only [facility] [address] [place] [address] Infusion Therapy (Feraheme 09/19) 05/22/2025 10:40 AM CDT OB Encounter [facility] [address] [place] [address] Janie Kelley MD Care (28 weeks 5 days ) 05/22/2025 Travel 05/15/2025 Nurse Triage [facility] [address] [place] [address] Janie Kelley MD Vaginal Discharge 05/14/2025 Telephone [facility] [address] [place] [address] Janie Kelley MD Injection (Medication); Infusion Therapy 05/08/2025 10:40 AM CDT OB Encounter [facility] [address] [place] [address] Janie Kelley MD Care (26 weeks 5 days /patient states no concerns) 05/08/2025 Travel from Last 3 Months Immunizations Immunization Administration Dates Next Due DTaP 04/28/2010,06/06/2007 [id number] (Pediarix) 06/16/2006,04/15/2006,0 02/16/2006 DTaP-IPV (Kinrix) 06/25/2010 HIB PRP-T (ActHIB,Hiberix) 06/06/2007,,04/15/2006,02/16 HPV 9 (Gardasil 9) 06/25/2021,06/13/2020 Hepatitis A (Peds) 06/25/2010,04/28/2010, 008 Inactivated Polio Vaccine 04/28/2010 Influenza,LAIV4 Live Intrana theresa (Flumist) 06/25/2010 MENINGOCOCCAL VACCINE 2 VIAL 2MO-55YO (MENVEO) 02/16/2022,05/29/2018 MMR 06/25/2010,04/28/2010,12/23/2006 Pneumococcal conj 13-Valent (Prevnar 13) 12/23/2006,06/16/2006,04/15/2006,02/16 Tdap 05/22/2025,12/27/2016 Varicella Vaccine 06/25/2010,04/28/2010,12/24/19 07 Family History Medical History Relation Name Comments Good Health Brother Chalin Anxiety disorder Father Depression Father Hypertension Father Anxiety disorder Mother Depression Mother Polycystic ovary syndrome Mother Good Health Sister 1 Chantell Good Health Sister 2 Shama Good Health Sister 3 Cristino Relation Name Status Comments Brother Chalin Alive Father Mother Sister 1 Chantell Alive Sister 2 Shama Alive Sister 3 Adley Alive Social History Tobacco Use Types Packs/Day Years Used Date Smoking Tobacco: Former Cigarettes 0.3 2.5 S tarted: 01/2023 Smokeless Tobacco: Current Tobacco Cessation:Ready to Q uit: Not Asked; Counseling Given: Not Answered Comments:tobacco pouches Alcohol Use Standard Drinks/Week Comments Not Currently 0 (1 standard drink = 0.6 oz pur e alcohol) PHQ-2 Answer Date Recorded PHQ-2 TOTAL SCORE 2 06/25/2025 Social Connections Answer Date Recorded Do you often feel lonely or isolated from those around you? 0 01/16/2025 Alcohol Use Answer Date Recorded How often do you have a drink containing alcohol ? 0 07/03/2025 How many drinks containing a lcohol do you have on a typical day when you are drinking? 0 07/03/2025 Frequency of Binge Drinking Not on file 06/19 Financial Resource Strain Answer Date R ecorded Difficulty of Paying Living Expenses 3 01/16/2025 Difficulty of Paying Living Expenses Not on file 01/16/2025 Food Insecurity Answer Date Recorded Do you worry your food will run out before you are able to buy more? 1 01/16/2025 Transportation Needs Answer Date Record ed Does lack of transportation keep you from medica l appointments? 1 01/16/2025 Does lack of transportation keep you from work, meetings or getting things that you need? 1 01/16/2025 Housing Stability Answer Date Recorded What is your housing situation today? 1 01/16/2025 Utilities Answer Date Recorded Do you have trouble paying f or utilities (for example, heat, electricity, water, phone)? 1 01/16/2025 Comments No Sex and Gender Information Value Date Recorded Sex Assigned at Not on file Legal Sex Female 1:46 PM PRINCIPAL CLOUD ARCHITECT Gender Identity Not on file Sexual Orientation Not on file Obstetrics History Para Term AB IAB SAB Ectopic Multiple Livin g Live Births 1 0 0 0 0 0 0 0 0 0 0 Date Outcome GA Total Labor Labor/2nd/3rd Weight Sex Type Anes PTL Bertha A1 A5 Name Clin Summary Episode Dates Number of Fetuses Estimated Date of Delivery 12/13/2024 - Present (07/25/2025) 08/09/2025 (set by Surekha Gastelum, BRE on 12/25/2024 based on Alternate BARTOLOME Entry) Dating Summary Based On BARTOLOME GA Diff Last Menstrual Period on 10/27/2024 08/03/2025 +6d Alternate BARTOLOME Entry 08/09/2025 Working Vitals Pregravid Weight Height TWG (As of 07/25/2025) Pregrav id BMI 1.601 m (5' 3.03) Notes Progress Notes - OB Encounte r - 07/03/2025 - GA:34w5d 07/03/2025 - 34w5d - Janie Kelley MD S: Patient 19 y.o. at 34w5d here today for routine visit. Doing well, no concerns, taking PNV's and asa. She has been doing exercises for breech presentation, does not believe she has flipped.. Worsening nausea and heartburn. Had some right upper quadrant pain with prolonged standing. Good movement. No vaginal bleeding/discharge, loss of fluid, contractions, dysuria or other urinary symptoms. No headache, vision changes, epigastric pain, facial or extremity edema. -specific history: Anxiety, PTSD and MDD. Started on Lexapro 10mg daily at 29w with PHQ9 14 / MARC 16. She has fleeting thoughts of SI. Has referral to psychology. Sees Edie Rondon for psychiatry. Stressors include: Loss of brother via overdose in early and expectant childbirth. History of opioid use disorder in early remission. Sober for >9+ months. Occasional cravings. Marijuana use / tobacco use occasionally. More with nausea. Quitting cannabis and tobacco. History of herpes. Plan for Valtrex (500mg twice daily) at 36 weeks (07/12). Pre-E risk --> nulliparity, sociodemographics. Start aspirin at 12 weeks. Anemia in . Hemoglobin 10.0 at 26 weeks, given 1 dose IV fereheme. Breech presentation at 32w5d confirmed via POCUS. Monitor at each visit and refer to OB if breech at 36 weeks. O: See flowsheet. POCUS presentation: The patient verbally consented to receive a bedside point of care ultrasound (POCUS) to confirm presentation to prepare for delivery. The patient was informed that a POCUS is not a comprehensive obstetric ultrasound but rather a limited bedside tool to answer a single clinical question, in this case, whether the fetus is in the cephalic position. If the fetus is in the breech or transverse position, they will be referred to OB for discussion of ECV vs a section. POCUS exam today demonstrates breech heart activity is present with a rate of 120 beats per minute. A/P: 19 y.o. at 34w5d, doing well. (Z34.03) Encounter for supervision of normal first in third trimester (HC) (primary encounter diagnosis) (O09.893) High risk teen in third trimester (HC) (O32.1XX0) Breech presentation, single or unspecified fetus (HC) (A60.04) Herpes simplex vulvovaginitis - Referral to [employer]ING VALIDATION CONSULTANT to consider ECV vs c/s for breech presentation. - Start valtrex on 07/12, sent prescription to pharmacy. - Reviewed labor precautions. - Return in 2wks for OB FU. Janie Kelley MD .................... 07/03/2025 11:42 AM Progress Notes - OB Encounte r - 06/19/2025 - GA:32w5d 06/19/2025 - wd - Janie Kelley MD S: Patient 19 y.o. at 32w5d here today for routine visit. Doing well, no concerns, taking PNV's and aspirin. Not taking oral iron. Completed 1 fereheme infusion. Anxiety. On lexapro. Stable. Ok with dose right now. No nausea. Good movement. No vaginal bleeding/discharge, loss of fluid, contractions, dysuria or other urinary symptoms. No headache, vision changes, RUQ or epigastric pain, facial or extremity edema. -specific history: Anxiety, PTSD and MDD. Started on Lexapro 10mg daily at 29w with PHQ9 14 / MARC 16. She has fleeting thoughts of SI. Has referral to psychology. Sees Edie Rondon for psychiatry. Stressors include: Loss of brother via overdose in early and expectant childbirth. History of opioid use disorder in early remission. Sober for >9 months. Occasional cravings. Marijuana use / tobacco use occasionally. More with nausea. Quitting cannabis and tobacco. History of herpes. Plan for Valtrex (500mg twice daily) at 36 weeks (07/12). Pre-E risk --> nulliparity, sociodemographics. Start aspirin at 12 weeks. Anemia in . Hemoglobin 10.0 at 26 weeks, given 1 dose IV fereheme. Breech presentation at 32w5d confirmed via POCUS. Monitor at each visit and refer to OB if breech at 36 weeks. O: See flowsheet. POCUS presentation: The patient verbally consented to receive a bedside point of care ultrasound (POCUS) to confirm presentation to prepare for delivery. The patient was informed that a POCUS is not a comprehensive obstetric ultrasound but rather a limited bedside tool to answer a single clinical question, in this case, whether the fetus is in the cephalic position. If the fetus is in the breech or transverse position, we will reassess at next visit and will be referred to OB for discussion of ECV vs Caesarian section if she remains breech. POCUS exam today demonstrates breech position. A/P: (Z34.03) Encounter for supervision of normal first in third trimester (HC) (primary encounter diagnosis) (O99.019) Anemia during (HC) (O32.1XX0) Breech presentation, single or unspecified fetus (HC) (O09.893) High risk teen in third trimester (HC) (F41.8) Anxious depression - 19 y.o. at 32w5d, doing well. - Breech presentation today. Provided exercises to try at home thru [employer]. Reviewed if remains breech, she would need consult with OB to discuss ECV vs c/s at 36 weeks. - Anemia in . Recheck hemoglobin today. - Anxiety/depression. Refilled lexapro 10mg daily. - Reviewed labor precautions, non-pharm pain management options, birthing classes - Return in 2wks for OB FU. Janie Kelley MD .................... 06/19/2025 10:54 AM Progress Notes - OB Encounte r - 06/05/2025 - GA:30w5d 06/05/2025 - 30wd - Janie Kelley MD S: Patient 19 y.o. at 30w5d here today for routine visit. Doing well, taking PNV's and aspirin. Started on Lexapro on 05/30. Partner states she is less snappy. Has been on for about 1 week. Has colostrum leakage from breast. Has had a couple cramps in the right abdomen lower. 2-3 times. Ripley like period cramping, couple minutes. Using nicotine pouches (8mg each, 2 throughout day, leaves in for 25-45 minutes). Stopped smoking cigarettes. She has had gingivitis. Good movement. No vaginal bleeding/discharge, loss of fluid, dysuria or other urinary symptoms. No headache, vision changes, RUQ or epigastric pain, facial or extremity edema. -specific history: History of opioid use disorder in early remission. Sober for >9 months. Occasional cravings. Anxiety, PTSD and MDD. Started on Lexapro 10mg daily at 29w with PHQ9 14 / MARC 16. She has fleeting thoughts of SI. Has referral to psychology. Sees Edie Rondon for psychiatry. Stressors include: Loss of brother via overdose in early and expectant childbirth. Marijuana use / tobacco use occasionally. More with nausea. Quitting cannabis and tobacco. History of herpes. Plan for Valtrex (500mg twice daily) at 36 weeks (07/12). Pre-E risk --> nulliparity, sociodemographics. Start aspirin at 12 weeks. Anemia in . Hemoglobin 10.0 at 26 weeks, given 1 dose IV fereheme. O: See flowsheet. Exam: erythematous and edematous gums, no visible white plaques. A/P: (Z34.03) Encounter for supervision of normal first in third trimester (HC) (primary encounter diagnosis) (F41.1) MARC (generalized anxiety disorder) (F33.1) MDD (major depressive disorder), recurrent episode, moderate (HC) (Z72.0) Nicotine use (O99.019) Anemia during (HC) (K05.10) Gingivitis - 19 y.o. at 30w5d, doing well. - Start nystatin for possible oral candidiasis. Has dental appt at beginning of Jun. - MDD/MARC. Continue lexapro. Schedule psychology appt. - Anemia in s/p iron infusion. Repeat hemoglobin at next visit. - H/o genital herpes, start valtrex 500mg twice daily at 36 weeks. - Colostrum leakage is normal. Advised against nipple/breast stimulation. Ok to catch leaking colostrum to freeze. - Discussed labor / classes and groups available in the community. - Return in 2wks for OB FU. Janie Kelley MD .................... 06/05/2025 11:01 AM Progress Notes - OB Encounte r - 05/22/2025 - GA:28w5d 05/22/2025 - 28wd - Janie Kelley MD S: Patient 19 y.o. at 28w5d here today for routine visit. Doing well, no concerns.. No nausea. Good movement. No vaginal bleeding/discharge, loss of fluid, contractions, dysuria or other urinary symptoms. No headache, vision changes, RUQ or epigastric pain, facial or extremity edema. -specific history: History of opioid use disorder in early remission. Sober for >9 months. Occasional cravings. Anxiety, PTSD and MDD. No current medications. Depression has been better. PTSD is similar to previous. Mental health overall is doing better. Loss of brother via overdose in early . Marijuana use / tobacco use occasionally. More with nausea. Quitting cannabis and tobacco. History of herpes. Plan for Valtrex at 36 weeks. Pre-E risk --> nulliparity, sociodemographics. Start aspirin at 12 weeks. O: See flowsheet. A/P: (Z34.03) Encounter for supervision of normal first in third trimester (HC) (primary encounter diagnosis) - 19 y.o. at 28w5d, doing well. - Tdap today - Reviewed labor precautions. - Return in 2wks for OB FU. Janie Kelley MD .................... 05/22/2025 2:55 PM Progress Notes - OB Encounte r - 05/08/2025 - GA:26w5d 05/08/2025 - - Janie Kelley MD S: Patient 19 y.o. at 26w5d here today for routine visit. Doing well, no concerns, taking PNV's and aspirin - has not taken in the last 2 weeks. No nausea. Good movement, very activity. Pretty cardoza Continues to laugh a lot and gets pretty snappy quickly. No vaginal bleeding/discharge, loss of fluid, contractions, dysuria or other urinary symptoms. No headache, vision changes, RUQ or epigastric pain, facial or extremity edema. -specific history: History of opioid use disorder in early remission. Sober for >9 months. Occasional cravings. Anxiety, PTSD and MDD. No current medications. Depression has been better. PTSD is similar to previous. Mental health overall is doing better. Loss of brother via overdose in early . Marijuana use / tobacco use occasionally. More with nausea. Quitting cannabis and tobacco. History of herpes. Plan for Valtrex at 36 weeks. Pre-E risk --> nulliparity, sociodemographics. Start aspirin at 12 weeks. O: See flowsheet. A/P: (Z34.02) Encounter for supervision of normal first in second trimester (HC) (primary encounter diagnosis) - 19 y.o. at 26w5d, doing well. - GTT, hemoglobin, treponema today - Reviewed labor precautions. - Return in 2 wks for OB FU. Janie Kelley MD .................... 05/08/2025 11:18 AM Progress Notes - OB Encounte r - 04/10/2025 - GA:22w5d 04/10/2025 - wd - Janie Kelley MD S: Patient 19 y.o. at 22w5d here today for routine visit. Doing well, no concerns, taking PNV's and aspirin. Wonders about epidural and effectiveness of fentanyl with h/o opioid use.. No nausea. Good movement. No vaginal bleeding/discharge, loss of fluid, contractions, dysuria or other urinary symptoms. No headache, vision changes, RUQ or epigastric pain, facial or extremity edema. -specific history: History of opioid use disorder in early remission. Sober for >9 months. Occasional cravings. Anxiety, PTSD and MDD. No current medications. Depression has been better. PTSD is similar to previous. Mental health overall is doing better. Loss of brother via overdose in early . Marijuana use / tobacco use occasionally. More with nausea. Quitting cannabis and tobacco. History of herpes. Plan for Valtrex at 36 weeks. Pre-E risk --> nulliparity, sociodemographics. Start aspirin at 12 weeks. O: See flowsheet. A/P: 19 y.o. at 22w5d, doing well. (Z34.02) Encounter for supervision of normal first in second trimester (HC) (primary encounter diagnosis) - Next visit: 1 hr GTT, hemoglobin, treponema - Reviewed labor precautions. - Return in 4wks for OB FU. Janie Kelley MD .................... 04/10/2025 11:05 AM Progress Notes - OB Encounte r - 03/13/2025 - GA:18w5d 03/13/2025 - wd - Lashell Santillan Patient stopped at my desk to schedule - scheduled 03/27/25 Lashell Santillan .................... 03/13/2025 11:49 AM 03/13/2025 - d - Janie Kelley MD S: Patient 19 y.o. at 18w5d here today for routine visit. Doing well, no concerns, taking PNV's and aspirin. States her brother just by overdose. She is doing as well as can be. States she has headaches related to stress that resolve. No nausea. Has some movment movement. No vaginal bleeding or significant discharge, loss of fluid, contractions, dysuria or other urinary symptoms. No vision changes, RUQ or epigastric pain, facial or extremity edema. -specific history: History of opioid use disorder in early remission. Sober for >9 months. Occasional cravings. Anxiety, PTSD and MDD. No current medications. Depression has been better. PTSD is similar to previous. Mental health overall is doing better. Loss of brother via overdose in early . Marijuana use / tobacco use occasionally. More with nausea. Quitting cannabis and tobacco. History of herpes. Plan for Valtrex at 36 weeks. Pre-E risk --> nulliparity, sociodemographics. Start aspirin at 12 weeks. O: See flowsheet. A/P: 19 y.o. at 18w5d, doing well. (Z34.01) Encounter for supervision of normal first in first trimester (HC) (primary encounter diagnosis) - Order for anatomy US. - Schedule 1 hr GTT, hemoglobin, treponema in 6-8 weeks - Reviewed labor precautions. - Return in 4wks for OB FU. Janie Kelley MD .................... 03/13/2025 11:32 AM Progress Notes - OB Encounte r - 02/20/2025 - GA:15w5d 02/20/2025 - 15w5d - Janie Kelley MD S: Patient 19 y.o. at 15w5d here today for routine visit. Doing well, no concerns, taking PNV's. Has not been taking aspirin as forgetful No nausea. Has not felt movement. No vaginal bleeding/discharge, loss of fluid, contractions, dysuria or other urinary symptoms. No headache, vision changes, RUQ or epigastric pain, facial or extremity edema. -specific history: History of opioid use disorder in early remission. Sober for >9 months. Occasional cravings. Anxiety, PTSD and MDD. No current medications. Depression has been better. PTSD is similar to previous. Mental health overall is doing better. Marijuana use occasionally. More with nausea. History of herpes. Plan for Valtrex at 36 weeks. Pre-E risk --> nulliparity, sociodemographics. Start aspirin at 12 weeks. O: See flowsheet. A/P: 19 y.o. at 15w5d, doing well. (Z34.01) Encounter for supervision of normal first in first trimester () (primary encounter diagnosis) (O09.891) High risk teen in first trimester (HC) - Panorama today. - Anatomy scan at 20 weeks - Reviewed labor precautions. - Return in 4wks for OB FU. Janie Kelley MD .................... 02/20/2025 11:14 AM Progress Notes - OB Encounte r - 01/16/2025 - GA:10w5d 01/16/2025 - wd - Janie Kelley MD Clinic Note: First OB Visit 01/16/2025 Cecilia Gonzales is a 19 y.o. with Estimated Date of Delivery: 08/09/25, here today for a first visit. She is doing well, with mild nausea in morning. No bleeding, discharge, or pain. Takes vitamin. Nausea History of opioid use disorder in early remission. Sober for >9 months. Occasional cravings. Anxiety, PTSD and MDD. No current medications. Depression has been better. PTSD is similar to previous. Mental health overall is doing better. Marijuana use occasionally. More with nausea. History of herpes. Plan for Valtrex at 36 weeks. SOCIAL HISTORY Marital Status: partnered Occupation: not currently employed /Father of baby: Rubén (boyfriend) MENSTRUAL HISTORY Patient's last menstrual period was 10/27/2024.: Cycle Regularity: irregular, every other month. Menarche (age onset): 13 years of age OBSTETRICS HISTORY Previous Pregnancies: never MEDICAL HISTORY Medical, surgical, family, and social history reviewed today and updated if necessary. Past Medical History: . Date Depression 2017 DMDD (disruptive mood dysregulation disorder) () 02/16/2022 Herpes 2020 No Significant Past Medical History Past Surgical History: . Laterality Date NO PREVIOUS SURGERY Patient has no known allergies. Family History Problem Relation Age of Onset Anxiety disorder Mother Depression Mother Polycystic ovary syndrome Mother Hypertension Father Anxiety disorder Father Depression Father Good Health Sister Good Health Sister Good Health Sister Good Health Brother Current Outpatient Medications: mirtazapine 7.5 mg tablet, Take 1/2-1 tablet (3.75-7.5 mg) by mouth 1-2 times daily as needed for anxiety/panic, Disp: 30 Tablet, Rfl: 1 naloxone (Narcan) 4 mg/actuation nasal spray, Inhale 1 Laurel into affected nostril(s) each time if needed for Patient Diff To Arouse or Resp Rate < 8 / min (Overdose). Additional doses may be given every 2 to 3 minutes until emergency medical assistance arrives. (Patient not taking: Reported on 11/13/2024), Disp: 2 Each, Rfl: 0 PNV no.95/ferrous fum/folic ac ( ORAL), Take by mouth., Disp: , Rfl: Medications have been reviewed by me and are current to the best of my knowledge and ability. REVIEW OF SYSTEMS: General- No fevers, chills, or night sweats. No unintended weight gain/loss. Appetite NL. HEENT- No sinus pain, visual change, congestion or throat pain. No epistaxis or ear pain or drainage. No changes in vision (blurry vision, diplopia, etc) CV- No chest pain, palpitations, change in exercise tolerance. No leg claudication. Lungs- No dyspnea or cough. No hemoptysis. No shortness of breath. GI- No constipation or diarrhea. Denies GERD sx's. No melena or hematochezia. - No dysuria, frequency, nocturia or hematuria Musculoskeletal-right hip and low back pain. No joint pain or noticeable erythema or swelling. No myalgias. Neuro- No headaches, numbness, tingling, dizziness, lightheadedness, change in strength or in speech. No focal weakness. Heme- No bleeding or bruising. Skin- No skin changes. No new or changing moles or rashes. Psychosocial- No depressive symptoms or anxiety. PHYSICAL EXAM BP 100/66 (Cuff Site: Right Arm, Position: Sitting, Cuff Size: Adult Regular) Pulse 83 Wt 44.1 kg (97 lb 2 oz) LMP 10/27/2024 SpO2 100% General Appearance: Alert, well-developed, well-nourished, with appropriate grooming and dress. No acute distress HEENT Exam: Grossly normal. Neck / Thyroid Exam: Supple, no masses, nodes or enlargement. Skin: no rash or abnormalities Neurologic Exam: Normal gait and speech, no tremor. DTR's 2+ and symmetric Psychiatric Exam: Alert and oriented, appropriate affect. ASSESSMENT/PLAN: ICD-10-CM 1. Encounter for supervision of normal first in first trimester (HC) Z34.01 aspirin 81 mg enteric coated tablet 2. High risk teen in first trimester (HC) O09.891 aspirin 81 mg enteric coated tablet 3. Opioid use disorder, severe, in early remission (HC) F11.21 naloxone (Narcan) 4 mg/actuation nasal spray 1. First OB: Satisfactory exam. Demonstrates appropriate and health seeking behaviors toward her . Verbalizes good understanding of care schedule and the importance of coming to each visit as scheduled. Has supportive family relationship. - Reviewed lab results. 2. History of opioid use disorder in early remission. Sober for >9 months. Occasional cravings, no interest on acting on cravings. Provided patient with information in . Sent prescription for Narcan. Reviewed prior urine drug screen. No indication for routine drug testing at this time. 3. Anxiety, PTSD and MDD. No current medications. Depression has been better. PTSD is similar to previous. Mental health overall is doing better. Follows with Edie Tong in psychiatry. 4. Marijuana use occasionally. More with nausea. 5. History of herpes. Plan for suppressive therapy with Valtrex at 36 weeks. 6. Preeclampsia risk -nulliparity, sociodemographics. Start aspirin at 12 weeks. 6. RTC 4 weeks. She was encouraged to call the office with any questions or concerns. Janie Kelley MD .................... 01/16/2025 11:41 AM Progress Notes - OB Encounte r - 12/13/2024 - GA:5w6d 12/13/2024 - 5w6d - Surekha Gastelum RN SUBJECTIVE: Cecilia Gonzales is a 18 y.o. female, , who presents for confirmation and ob education. Patient presents to the clinic with boyfriend Rubén. Had positive test at home. This was Unplanned, Desired. Patient was not on contraception. Date Reliability: approximate (month known) BARTOLOME based on LMP: Estimated Date of Delivery: 08/03/25 Current symptoms include: Nausea:Yes - very mild within the last couple of days Vomiting:No Breast tenderness:Yes Vaginal bleeding:No Vaginal discharge:Yes - her normal Pelvic cramping:Yes Fatigue:Yes Previous Delivery Type: NA Occupation of patient: Not currently employed Name of Partner or Father of baby: Rubén. MENSTRUAL HISTORY: Patient's last menstrual period was 10/27/2024.: Cycle Regularity: irregular Past Medical History: . Date Depression 2018 DMDD (disruptive mood dysregulation disorder) (HC) 02/16/2022 Herpes 2020 No Significant Past Medical History OB History Para Term AB Living 1 0 0 0 0 0 SAB IAB Ectopic Multiple Live Births 0 0 0 0 0 # Outcome Date GA Lbr Jonathon/2nd Weight Sex Type Anes PTL Lv 1 Current 5P'S SUBSTANCE ABUSE SCREEN FOR ALCOHOL, DRUGS AND TOBACCO: Did any of your parents have a problem with using alcohol or drugs? No Do any of your friends (peers) have problems with drug or alcohol use? No Does your partner have a problem with drug or alcohol use? No Before you knew you were , how often did you drink beer, wine, wine coolers or liquor or use any kind of drug? Rarely In the past month, how often did you drink beer, wine, wine coolers or liquor or use any kind of drug? Not at all How much did you smoke, vape or use tobacco or nicotine in any form before you knew you were ? Former User -Quit Date 12/09/24 Genetic Screening Genetic Screening/Teratology Counseling- Includes patient, baby's father, or anyone in either family with: Patient's age 35 years or older as of estimated date of delivery: No Thalassemia (Panamanian, Turkmen, Mediterranean, or background): MCV less than 80: No Neural tube defect (Meningomyelocele, Spina bifida, or Anencephaly): No Congenital heart defect: No Down syndrome: No Adebayo-Sachs (Ashkenazi Pentecostal, Cajun, Bulgarian Freedom): No Kirt disease (Ashkenazi Pentecostal): No Familial dysautonomia (Ashkenazi Pentecostal): No Sickle cell disease or trait (): No Hemophilia or other blood disorders: No Muscular dystrophy: No Cystic fibrosis: No Carter's chorea: No Intellectual disability and/or autism: No Other inherited genetic or chromosomal disorder: No Maternal metabolic disorder (eg. Type 1 diabetes, PKU): No Patient or baby's father had child with defects not listed above: Yes (Comment: Paternal grandmother has Grave's disease and maternal grandmother had gestational diabetes) Recurrent loss, or a stillbirth: No Medications (including supplements, vitamins, herbs, or OTC drugs)/illicit/recreational drugs/alcohol since last menstrual period: No CURRENT MEDICATIONS: Current Outpatient Medications Medication Sig mirtazapine 7.5 mg tablet Take 1/2-1 tablet (3.75-7.5 mg) by mouth 1-2 times daily as needed for anxiety/panic naloxone (Narcan) 4 mg/actuation nasal spray Inhale 1 Laurel into affected nostril(s) each time if needed for Patient Diff To Arouse or Resp Rate < 8 / min (Overdose). Additional doses may be given every 2 to 3 minutes until emergency medical assistance arrives. (Patient not taking: Reported on 11/13/2024) No current facility-administered medications for this visit. Medications have been reviewed by me and are current to the best of my knowledge and ability. ALLERGIES: Patient has no known allergies. OBJECTIVE: Ht 1.601 m (5' 3.03) Wt 42.5 kg (93 lb 9.6 oz) LMP 10/27/2024 BMI 16.56 kg/m ,URINE (no units) Date Value 11/08/2023 Negative ASSESSMENT/PLAN: ICD-10-CM 1. Encounter for supervision of normal first in first trimester () Z34.01 EDUCATION/PATIENT INSTRUCTIONS - Advised patient to start/continue vitamin. - Discussed risk of using alcohol, tobacco, other drugs in . - Discussed healthy lifestyle in . - Provided copy of Beginnings book and book inserts, discussed ikth-pdy-kuliejt medications, and follow up. - Encouraged patient to call clinic at [phone] with any vaginal bleeding, fluid leaking from vagina, severe abdominal pain, nausea with severe vomiting, fever higher than 100.4F, painful urination, headache not relieved by Tylenol, or other concerns - labs completed with today's visit. - Patient informed to schedule 1st trimester dating ultrasound between 7-10 weeks. - Initial OB appointment with FP/OB scheduled. PHQ-9, and COVID-19 vaccine discussion to be completed at this visit. Future Appointments Date Time Provider Department Center 01/09/2025 11:45 AM Merari Rondon, FINANCE INTERN [facility] Verbal Order per Read Back to order urine compliance drug analysis due to patients history. Patient states she has not used any substances or alcohol since 12/09/24 when she had a positive test at home. Surekha Gastelum RN .................... 12/13/2024 11:20 AM Last Filed Vital Signs Vital Sign Reading Time Taken Comments Blood Pressure 111/68 07/22/2025 10:42 AM PRINCIPAL CLOUD ARCHITECT Pulse 119 07/22/2025 10:42 AM PRINCIPAL CLOUD ARCHITECT Temperature 36.7 C (98 F) 05/29/2025 3:24 PM CDT Respiratory Rate 16 08/19/2023 10:05 AM PRINCIPAL CLOUD ARCHITECT Oxygen Saturation 97% 07/22/2025 10:42 AM PRINCIPAL CLOUD ARCHITECT Inhaled Oxygen Concentration - - Weight 53.5 kg (118 lb) 07/03/2025 10:47 AM CDT Height 160.1 cm (5' 3.03) 12/13/2024 11:10 AM C DT Body Mass Index - - Plan of Treatment Upcoming Encounters Date Type Department Care Team (Late st Contact Info) Description 08/23/2025 1:25 PM PRINCIPAL CLOUD ARCHITECT Office Visit [facility] [address] [place] [address] Kelley, MD [place] [address] Health Maintenance Due Date Last Done Comments Well Child Check for age 3-20 06/25/2022, 06/13/2020, 11/15/2016 Influenza Vaccine (#1) 2025 06/25/2010 BMI (ht and wt on same day) for age 18+ 12/13/2025 12/13/2024, 08/06/2024, 01/06/2024, Additional history exists Chlamydia for age 16-24 12/13/2025 12/14/19, 10/07/2021, 08/06/2021, Additional history exists Depression screening for age 12+ 06/25/2026 06/25/2025, 06/05/2025, 06/04/2025, Additional history exists Tetanus booster 05/22/2035 05/22/2025, 12/27/2016 RSV vaccine for adults or (1 - 1-dose 75+ series) 2080 Hepatitis B series for 19+ Completed 06/16, 04/15/2006, 02/16/2006 Pneumococcal series for age 6-49 Completed 12/23/2006, 06/16/2006, 04/15/2006, Additional history exists HPV series for age 9-45 Completed 06/25/2021, 06/13 Meningococcal series for age 11-21 Completed 2021, 05/29/2018 HIV for age 15-65 Completed 12/13/2024, 12/21/2023 Hepatitis C screening for ag e 18-79 Completed 12/13/2024, 12/21/2023 Procedures Procedure Name Priority Date/Time Associated Diagnosis Comments US PELVIS SOFT TISSUE STAT 07/22/2025 11:07 AM PRINCIPAL CLOUD ARCHITECT Problem involving surgical incision PATH TISSUE EXAM PLACENTA Routine 07/13/2025 8:18 PM CDT LAB TRACKING EVENT Routine 07/13/2025 8: 16 PM CDT SCAN-LABORATORY REPORT 07/13/2025 12:00 AM CDT SCAN-ULTRASOUND REPORT 07/09/2025 12:00 AM CDT HEMOGLOBIN Routine 06/19/2025 11:21 AM CDT Anemia during (HC) TREPONEMA PALLIDUM Routine 05/08/2025 11 :04 AM CDT Encounter for supervision of normal first in second trimester (HC) HEMOGLOBIN Routine 05/08/2025 11:04 AM CDT Encounter for supervision of normal first in second trimester (HC) GLUCOSE TOLERANCE, GESTATIONAL SCREEN 1H Routine 05/08/2025 11:04 AM CDT Encounter for supervision of normal first in second trimester (HC) ANTI HIV 1/2 Routine 12/13/2024 12:14 PM CDT Encounter for supervision of normal first in first trimester (HC) ANTI HCV Routine 12/13/2024 12:14 PM CDT Encounter for supervision of normal first in first trimester (HC) GC CHLAMYDIA TRACH PROBE Routine 12/13/2024 12:10 PM CDT Encounter for supervision of normal first in first trimester (HC) from Last 3 Months or Most Recently Relevant to Health Maintenance Results * US PELVIS SOFT TISSUE (07/22/2025 11:07 AM PRINCIPAL CLOUD ARCHITECT) Anatomical Region Laterality Modality Pelvis Ultrasound 07/22/2025 11:1 4 AM PRINCIPAL CLOUD ARCHITECT Impressions 07/22/2025 11:14 AM PRINCIPAL CLOUD ARCHITECT Complex abdominal wall fluid collection near the scar measures 3.5 x 6.8 x 1.7 cm and may reflect postoperative seroma, hematoma or abscess in the appropriate clinical setting. Dictated by Celso Dean MD @ 07/22/2025 11:14:11 AM Dictated by: Celso Dean MD @ 07/22/2025 11:14:25 (Electronically Signed) Narrative 07/22/2025 11:14 AM PRINCIPAL CLOUD ARCHITECT For Patients: As a result of the Cures Act, medical imaging exams and procedure reports are released immediately into your electronic medical record. You may view this report before your referring provider. If you have questions, please contact your health care provider. INDICATION: Problem involving surgical incision. Possible seroma underlying scar. TECHNIQUE: Grayscale and color imaging was performed over an area of interest in the anterior abdominal wall near . COMPARISON: None. FINDINGS: Lobulated complex collection subjacent to scar measures 3.5 x 6.8 x 1.7 cm. Soft tissues elsewhere as imaged unremarkable. Procedure Note Celso Dean, DO - 07/22/2025 For Patients: As a result of the Cures Act, medical imagingexams and procedure reports are released immediately into your electronicmedical record. You may view this report before your referring provider.If you have questions, please contact your health care provider. INDICATION: Problem involving surgical incision. Possible seroma underlying C-sectionscar. TECHNIQUE: Grayscale and color imaging was performed over an area of interest in theanterior abdominal wall near . COMPARISON: None. FINDINGS: Lobulated complex collection subjacent to scar measures 3.5 x6.8 x 1.7 cm. Soft tissues elsewhere as imaged unremarkable. IMPRESSION: Complex abdominal wall fluid collection near the scar measures3.5 x 6.8 x 1.7 cm and may reflect postoperative seroma, hematoma orabscess in the appropriate clinical setting. Dictated by Celso Dean MD @ 07/22/2025 11:14:11 AM Dictated by: Celso Dean MD @ 07/22/2025 11:14:25 (Electronically Signed) us Janie Kelley MD Fi nal Result * PATH TISSUE EXAM PLACENTA (07/13/2025 8:18 PM CDT) Case Report Pathology Report Case: [id number] Authorizing Provider: Dayami Beauchamp MD Collected: 07/13/20252017 Ordering Location: [facility] Received: 07/15/2025 1532 Pathologist: Korin Bourgeois MD Specimen: Placenta 07/17/2025 2:04 PM CDT [facility] Final Diagnosis A) PLACENTA, DELIVERY: 1. Third trimester damon placenta with the following characteristics: a. Weight: 325 grams (<10th percentile for gestational age) b. Membranes/ surface: Circumvallate placentation Mildly increased subchorionic fibrin Negative for chorioamnionitis c. Umbilical cord: Three vessel cord with hypercoiling Negative for funisitis d. Disc/Villi: Chorionic villi consistent with gestational age Negative for villitis Placental disc without infarcts e. Decidua/basal plate: No diagnostic abnormalities identified 07/17/2025 2:04 PM CDT [facility] at 1404 CDT Comment Circumvallation is the complete or partial insertion of the membranes in the placental disc away from the peripheral margin. It occurs in 1%-7% of all placentas. Such placentas are associated with recurrent vaginal bleeding in all trimesters or chronic marginal abruption. There is an increased risk of intrauterine growth restriction and intermission coordinator neurologic impairment, especially when associated with chronic marginal hemorrhages. 07/17/2025 2:04 PM CDT [facility] Clinical Information Indications for Placental Examination by Pathology / indications: IUGR Maternal indications: n/a Placental indications: n/a Infectious specimen (e.g. maternal HIV or HCV): No Clinical information: Date of delivery: 07/13/2025 Time of delivery: 2015 Type of delivery: Live born:Yes Gestational age: 36 weeks 1 day weight of infant(s): 2190 grams Sex of (s): Female Pertinent Maternal History: Maternal parity: Diabetes: No Hypertension: No Eclampsia: No Smoking: No 07/17/2025 2:04 PM CDT [facility] Gross Description A) Received fresh labeled with the patient's name and placenta, is a 325 gram, 15.8 x 14.3 x 2.3 cm damon placenta. The surface is blue-carter with normal vasculature. The 16.5 cm long, 0.9 cm diameter trivascular umbilical cord is centrally inserted 5.0 cm from the nearest edge of the placental plate. The umbilical cord is free of true and false knots. There are 8 revolutions per 10 cm. The extraplacental membranes are pink semitransparent with circumvallate insertion. The maximum distance from the central edge to insertion is 2.4 cm accounting for approximately 5% of the total volume. There is a 11.7 x 10.5 subamnionic area of hemorrhage extending from the placental edge to the umbilical cord insertion accounting for 60% of the surface. The maternal surface is complete with intact cotyledons. Sectioning reveals a hemorrhagic spongy center throughout Sandwich Hand sections are submitted: 1. membranes and insertion 2. Umbilical cord 3. Placenta parenchyma at umbilical cord insertion, full-thickness 4-5. Central placental parenchyma, full-thickness 6. Placenta parenchyma along periphery with circumvallate insertion Time and date in formalin: 1547 on 07/15/2025 TRS 07/15/2025 07/17/2025 2:04 PM CDT [facility] Microscopic Description The final diagnosis is based on microscopic examination of appropriate sections of all specimens. 07/17/2025 2:04 PM CDT [facility] Additional Information Interpreted at [facility] - [address] [facility] [address], [place] [address] 07/17/2025 2:04 PM CDT [facility] Tissue SPECIMEN FROM PLACENTA / Unknown 07/13/2025 8:18 PM CDT 07/15/2025 3:32 PM CDT Dayami Beauchamp MD PATHOLOGY/CYTOLOGY Final R esult Performing Organization Address [facility] Co de Phone Number [facility] [address] [place] [address], * LAB TRACKING EVENT (07/13/2025 8:16 PM CDT) Other (Other) Client Collect / Unknown 07/13/2025 8:16 PM CDT 07/15/2025 1:33 PM CDT Dayami Beauchamp MD LAB BILL ONLY Final Resu lt Performing Organization Address City/[facility]/ZIP Co de Phone Number [facility]AL LABORATORY [address] [place] [address], [place] * SCAN-LABORATORY REPORT (07/13/2025 12:00 AM CDT) us Scanner OTHER Final Result * SCAN-ULTRASOUND REPORT (07/09/2025 12:00 AM CDT) Anatomical Region Laterality Modality Other us Scanner OTHER Final Result * (ABNORMAL) HEMOGLOBIN (06/19/2025 11:21 AM CDT) Only the most recent of2 resultswithin the time period is included. HEMOGLOBIN 10.7(L) 11.7 - 15.5 g/dL 06/20/2025 3:52 AM CDT [facility] MCV 91.8 80.0 - 100.0 fL 06/20/2025 3:52 AM CDT [facility] Blood BLOOD SPECIMEN / Unknown [facility] / Unknown 06/19/2025 11:21 AM CDT 06/19/2025 11:21 AM CDT us Janie Kelley MD HEMATOLOGY Fi nal Result Performing Organization Address [facility] Co de Phone Number [facility] [address] [phone], * TREPONEMA PALLIDUM (05/08/2025 11:04 AM CDT) TREPONEMA PALLIDUM Non-Reacti ve Non-Reacti ve 05/09/2025 12:54 AM CDT [facility] TRAL LABORATORY Blood BLOOD SPECIMEN / Unknown [facility] / Unknown 05/08/2025 11:04 AM CDT 05/08/2025 11:04 AM CDT us Janie Kelley MD SEND OUTS Fi nal Result Performing Organization Address City/[facility]/ZIP Co de Phone Number [facility]TRAL LABORATORY [address] [place] [address], * GLUCOSE TOLERANCE, GESTATIONAL SCREEN 1H (05/08/2025 11:04 AM CDT) [facility] GLUCOSE, GESTATIONAL SCREEN (50G)-140 CUTOFF 79 <140 mg/dL 05/09/2025 6:33 AM CDT [facility] Blood BLOOD SPECIMEN / Unknown [facility] / Unknown 05/08/2025 11:04 AM CDT 05/08/2025 11:04 AM CDT Janie Kelley MD CHEMISTRY Fi nal Result Performing Organization Address [facility] Co de Phone Number [facility] [address] [phone], * ANTI HCV (12/13/2024 12:14 PM CDT) [facility] HEPATITIS C ANTIBODY NON-REACTI VE NON-REACT AURY [facility] Comment: HCV antibody was non-reactive. There is no laboratory evidence of HCV infection. In most cases, no further action is required. However, if recent HCV exposure is suspected, a test for HCV RNA (test code 43918) is suggested. For additional information please refer to http://education.Hall/faq/NZV08p8 (This link is being provided for informational/ educational purposes only.) Blood BLOOD SPECIMEN / Unknown 12/13/2024 12:14 PM CDT 12/13/2024 12:15 PM CDT Janie Kelley MD SEND OUTS Fi nal Result Performing Organization Address City/[facility]/ZIP Co de Phone Number [facility] [address] [place] [address], [facility] [address] [place] [phone] * ANTI HIV 1/2 (12/13/2024 12:14 PM CDT) HIV AG/AB, 4TH GEN NON-REACT AURY NON-REACT AURY [facility] Comment: HIV-1 antigen and HIV-1/HIV-2 antibodies were not detected. There is no laboratory evidence of HIV infection. PLEASE NOTE: This information has been disclosed to you from records whose confidentiality may be protected by state law. If your state requires such protection, then the state law prohibits you from making any further disclosure of the information without the specific written consent of the person to whom it pertains, or as otherwise permitted by law. A general authorization for the release of medical or other information is NOT sufficient for this purpose. For additional information please refer to http://education.Hall/faq/XRT169 (This link is being provided for informational/ educational purposes only.) The performance of this assay has not been clinically validated in patients less than 2 years old. Blood BLOOD SPECIMEN / Unknown 12/13/2024 12:14 PM CDT 12/13/2024 12:15 PM CDT Janie Kelley MD SEND OUTS Fi nal Result [facility] [id number] [place] [address], [facility] [address] [place] [phone] * FORCE DISPATCHER PROBE - GC CHLAMYDIA DNA PCR [[id number]] (12/13/2024 12:10 PM CDT) CHLAMYDIA PROBE Negative 4:18 AM CDT [facility] N GONORRHOEAE PROBE Negative 2024 4:18 AM CDT [facility] Other URINE SPECIMEN / Unknown Non-Blood / Unknown 12/13/2024 12:10 PM CDT 12/13/2024 12:10 PM CDT Janie Kelley MD MICROBIOLOGY Fi nal Result [facility] [address] [place] [address], [place] from Last 3 Months or Most Recently Relevant to Health Maintenance Insurance [facility] Advance Directives * Full Code (Latest Code Status on File) Date Activated Date Inactivated Comments 11/13/2022 6:40 AM 2022 3:58 PM Question Answer Comments Code Status Discussion: Not Discussed Care Teams Personal Attendant Relationship Specialty Start Date End Date Janie Kelley MD [place] [id number] PCP - General Family Practice 05/29/25
[2025-07-25 18:30] VITALS: BP 121/70; PULSE 92; O2SAT 99
[2025-07-25 18:37] VITALS: BP 120/80; PULSE 102; RESP 20; TEMP 36.7; O2SAT 98
[2025-07-25 19:18] LABS: Hematocrit* 39.0 % (33.0-51.0); Hemoglobin* 12.8 gm/dL (12.0-16.0); Immature Granulocytes Abs Auto 0.06 K/uL (0.00-0.30); Immature Granulocytes Pct Auto 0.8 %; Lymphocytes Absolute Auto 2.25 K/uL (0.90-2.90); Mean Corpuscular HGB Conc 33 gm/dL (32-36); Mean Corpuscular Hemoglobin 30 pg (26-34); Mean Corpuscular Volume 91 fL (80-100); RDW Coefficient of Variation % 13.4 % (11.5-15.5); Red Blood Count* 4.27 m/uL (4.00-5.20); White Blood Count* 7.51 K/uL (4.50-11.00)
[2025-07-25 19:20] LABS: Slide Review Reflex No
--- NOTE | 2025-07-25 19:28 | ED.GENADULT ---
HPI - General Adult General Time Seen by Provider: 19:28 Date Seen: 07/25/25 Chief complaint: Post OB/Post- Complication Stated complaint: preeclampsia Time Seen by Provider: 07/25/25 18:53 Source: patient Mode of arrival: ambulatory Limitations: no limitations History of Present Illness HPI narrative: Cecilia is a 19 year old status post primary low transverse section (07/13/25) for breech presentation, complicated with severe preeclampsia requiring magnesium sulfate infusions and nifedipine ER 30 mg bid presents emergency department via private car with post complication. Patient states she was on nifedipine ER 30 mg b.i.d. when she was discharged from the hospital, on her follow-up appointment on 07/19 they decreased her blood pressure medications to once a day. Patient notes she developed a headache today, that was more persistent, frontal like the radiates to the back. She did have headaches over the last 3 days which resolved, she has been taking Tylenol and/or ibuprofen. Patient denies any visual changes, shortness of breath or chest pain, she has not had any lower extremity edema, she has had a little bit of bleeding from the incision site but denies any abdominal pain. Patient has been keeping track for blood pressures today, they have been ranging from 109 systolic to 91 diastolic. Patient's OB provider is in the [facility]. Related Data Home Medications ?Medication ?Instructions ?Recorded ?Confirmed escitalopram oxalate 10 mg tablet 10 mg PO QAM 07/09/25 07/25/25 vitamins no.154-ferrous tab PO 07/09/25 07/19/25 fumarate 27 mg-folic acid 1 mg tablet Previous Rx's ?Medication ?Instructions ?Recorded acetaminophen 500 mg tablet 1,000 mg (2 x 500 mg) PO Q6H PRN 07/16/25 Pain #0 tabs ferrous sulfate 325 mg (65 mg 325 mg PO Q OTHER DAY #20 tabs 07/16/25 iron) tablet (FeroSul) ibuprofen 600 mg tablet 600 mg PO Q6H PRN Pain #0 tabs 07/16/25 nifedipine 30 mg tablet,extended 30 mg PO BID #40 tabs 07/16/25 release cefdinir 300 mg capsule 300 mg PO BID 5 days #10 caps 07/25/25 Allergies Allergy/AdvReac Type Severity Reaction Status Date / Time amoxicillin Allergy Intermediate Vomiting Verified 07/25/25 18:36 Review of Systems Status of ROS: Reports: 10 or more systems reviewed and unremarkable except as noted in History and below [facility] Medical History (Updated 07/25/25 @ 21:37 by Everett Sorto MD) premature rupture of membranes (PPROM) with onset of labor within 24 hours of rupture in third trimester, antepartum ?O42.013 - premature rupture of membranes, onset of labor within 24 hours of rupture, third trimester (ICD-10) Anemia affecting ?O99.019 - Anemia complicating , unspecified trimester (ICD-10) Tobacco use affecting , antepartum ?O99.330 - Smoking (tobacco) complicating , unspecified trimester (ICD-10) growth restriction Malpresentation of fetus ?O32.9XX0 - Maternal care for malpresentation of fetus, unspecified, not applicable or unspecified (ICD-10) Family History Other Alzheimers disease Cardiovascular disease Depression High blood pressure Social History (Updated 07/13/25 @ 19:05 by Mendy Ramires M.D.) Narrative: Lives in [place] with partner Rubén. Not currently employed. No ETOH use. What is your current living situation?: I presently have a place to live Problems where you live: other Problems where you live details: NA In the past 12 months, utilities in danger of being shut off: no In past 12 months, lack of transportation kept you from medical appts, meetings, work, or getting things needed for daily living: no In the past 12 mos, have been you worried that your food would run out before you had money to buy more?: never true In the past 12 mos, the food you bought just didn't last and you didn't have money to buy more?: never true Smoking Status: Former smoker How often does anyone, including family, friends and others, physically hurt you: never How often does anyone, including family, friends and others, insult or talk down to you: never How often does anyone, including family, friends and others, threaten you with harm: never How often does anyone, including family, friends and others, scream or curse at you: never Exam Narrative: Exam Narrative: General: No obvious distress sitting comfortably HEENT: Pupils equal round reactive to light, extraocular muscles intact Oropharynx clear moist Neck: Supple Lungs: Clear to auscultation bilaterally Heart: Normal sinus rhythm S1-S2 Abdomen: Soft, nontender, lower surgical scar healing Lower extremities: No lower extremity edema Neuro: GCS 15 Const: Vital Signs, click to edit/add: Vital Signs - 24 hr 07/25/25 18:30 07/25/25 18:37 Temperature 98.1 F Pulse Rate [Pulse Oximeter] 92 102 H Respiratory Rate 20 Blood Pressure [Ri ght Upper Arm] 121/70 120/80 Pulse Oximetry 99 98 Oxygen Delivery Me thod Room Air Room Air Course Course ED Course: ED course: 8:00 PM: aidet performed, vitals here show blood pressure 121/70, repeat 120/80, blood pressures at home have been reassuring, here in the emergency department will obtain CBC, CMP, INR, urinalysis, plan to reach out to OBGYN. Differential includes preeclampsia, HELLP syndrome, migraine, headache. The ED disposition pending clinical course. Reevaluation(s) Time of Reevaluation #1: 21:45 Reevaluation #1: CBC showed no leukocytosis or anemia, comprehensive metabolic panel showed normal electrolytes, renal function and LFT's, urinalysis showed 2+ protein, 2+ blood, trace leukocyte esterase, 5-10 rbc's, 5-10 white blood cells, few bacteria. Was able to speak to his OB provider Dr. Hardwick, recommendations were for discharge, follow-up with them next week, can consider treating her possible urinary tract infection, urine culture sent, cefdinir 300 mg b.i.d. over the next 5 days sent to her pharmacy in [place], return precautions given. Vital Signs Vital signs: Initial Vital Signs Pulse Rate 92 07/25/25 18:30 Blood Pressure 121/70 07/25/25 18:30 Blood Pressure Mean 87 07/25/25 18:30 Blood Pressure Position Sitting 07/25/25 18:30 Pulse Oximetry 99 07/25/25 18:30 Oxygen Delivery Method Room Air 07/25/25 18:30 Vital Signs Pulse Rate 92 07/25/25 18:30 Blood Pressure 121/70 07/25/25 18:30 Pulse Oximetry 99 07/25/25 18:30 Oxygen Delivery Method Room Air 07/25/25 18:30 Temperature 98.1 F 07/25/25 18:37 Pulse Rate 102 H 07/25/25 18:37 Respiratory Rate 20 07/25/25 18:37 Blood Pressure 120/80 07/25/25 18:37 Pulse Oximetry 98 07/25/25 18:37 Oxygen Delivery Method Room Air 07/25/25 18:37 Medical Decision Making Lab Data Labs: Lab Results 07/25/25 07/25/25 Range/Units 19:13 19:40 WBC 7.51 (4.50-11.00) K/uL RBC 4.27 (4.00-5.20) m/uL Hgb 12.8 (12.0-16.0) gm/dL Hct 39.0 (33.0-51.0) % MCV 91 (80-100) fL MCH 30 (26-34) pg MCHC 33 (32-36) gm/dL RDW Coeff of Sarah 13.4 (11.5-15.5) % Plt Count 436 (140-440) K/uL Neut % (Auto) 60.0 (42.0-72.0) % Lymph % (Auto) 30.0 (20-44) % [place] % (Auto) 7.5 (0.0-11.0) % Eos % (Auto) 1.2 (0.0-7.0) % Baso % (Auto) 0.5 (0.0-3.0) % Neut # (Auto) 4.51 (1.7-7.0) K/uL Lymph # (Auto) 2.25 (0.90-2.90) K/uL Roosevelt # (Auto) 0.60 (0.00-0.90) K/UL Eos # (Auto) 0.09 (0.00-0.50) K/uL Baso # (Auto) 0.04 (0.00-0.30) K/uL Abs Immat Gran (auto) 0.06 (0.00-0.30) K/uL Imm/Tot Granulo (auto) 0.8 % INR 0.95 (0.91-1.10) Sodium 138 (135-149) mmol/L Potassium 3.9 (3.6-5.1) mmol/L Chloride 101 (96-114) mmol/L Carbon Dioxide 28 (20-32) mmol/L Anion Gap 9 (7-15) mEq/L BUN 14 (5-24) mg/dL Creatinine 0.7 (0.6-1.2) mg/dL Estimated Creat Clear 104.60 Estimated GFR 128 ml/min Glucose 97 (60-115) mg/dL Calcium 9.9 (8.7-10.8) mg/dL Total Bilirubin 0.6 (0.1-1.5) mg/dL AST 29 (12-35) U/L ALT 29 (4-35) U/L Alkaline Phosphatase 107 (40-150) U/L Total Protein 8.3 (6.0-8.3) g/dL Albumin 4.6 (3.3-5.0) g/dL Urine Color Yellow (Yellow) Urine Appearance Clear (Clear) Urine pH 7.0 (5.0-8.5) Ur Specific [place] 1.020 (1.000-1.030) Urine Protein 2+ A (Negative) Urine Glucose (UA) Negative (Negative) Urine Ketones Negative (Negative) Urine Blood 2+ A (Negative) Urine Nitrite Negative (Negative) Urine Bilirubin Negative (Negative) Urine Urobilinogen 1.0 (0.2-1.0) Ur Leukocyte Esterase Trace A (Negative) Urine RBC 5-10 A (0-2) Urine WBC 5-10 A (0-5) Ur Squamous Epith Cells Few (None-Few) Urine Bacteria Few A (None) Fine Granular Casts Few A (None) Discharge Plan Discharge Clinical Impression: Headache, History of pre-eclampsia Patient Disposition: Home, Self-Care Condition: Improved Instructions: Acute Headache (ED) Additional Instructions: To follow-up with OBGYN [facility], [place] next week. To continue with Cefdinir 300 mg twice daily for 5 days. Return if any worsening symptoms. Activity Level: No Restrictions Discharge Diet: Regular Prescriptions: New cefdinir 300 mg capsule 300 mg PO BID 5 Days Qty: 10 0RF No Action escitalopram oxalate 10 mg tablet 10 mg PO QAM PNV no.154-iron fumarate-folic 27 mg iron- 1 mg tablet PO acetaminophen 500 mg Tablet 1,000 mg PO Q6H PRN (Reason: Pain) Qty: 0 0RF ibuprofen 600 mg Tablet 600 mg PO Q6H PRN (Reason: Pain) Qty: 0 0RF nifedipine 30 mg Tablet Extended Release 30 mg PO BID Qty: 40 0RF ferrous sulfate [FeroSul] 325 mg (65 mg iron) tablet 325 mg PO Q OTHER DAY Qty: 20 0RF Follow Up/Referrals: Janie Kelley MD [Primary Care Provider, Family Practice] Stand Alone Forms: MyHealth Info Instructions
[2025-07-25 19:31] LABS: Albumin* 4.6 g/dL (3.3-5.0); Chloride* 101 mmol/L (96-114); Sodium* 138 mmol/L (135-149)
[2025-07-25 19:32] LABS: Potassium* 3.9 mmol/L (3.6-5.1)
[2025-07-25 19:34] LABS: Alanine Aminotransferase* 29 U/L (4-35); Alkaline Phosphatase* 107 U/L (40-150); Anion Gap 9 mEq/L (7-15); Aspartate Amino Transferase* 29 U/L (12-35); Bilirubin Total* 0.6 mg/dL (0.1-1.5); Blood Urea Nitrogen* 14 mg/dL (5-24); Carbon Dioxide* 28 mmol/L (20-32); Creatinine* 0.7 mg/dL (0.6-1.2); Est. Creatinine Clearance* 104.60; Estimated Glomerular Filt Rate 128 ml/min; INR 0.95 (0.91-1.10); Prothrombin Time 13.5 Seconds
[2025-07-25 19:35] LABS: Calcium* 9.9 mg/dL (8.7-10.8); Glucose* 97 mg/dL (60-115); Total Protein* 8.3 g/dL (6.0-8.3)
[2025-07-25 19:49] LABS: Appearance Urine Clear (Clear)
[2025-07-25 20:26] VITALS: BP 112/76; PULSE 68; RESP 16; O2SAT 98
== END 2025-07-25 21:45 | disposition home or self-care (01) ==
PROVIDERS: Emergency Provider Student in an Organized Health Care Education/Training Program; PCP Student in an Organized Health Care Education/Training Program
DX: R51.9 Headache, unspecified (principal); Z87.59 Personal history of other complications of pregnancy, childbirth and the puerperium
CPT/HCPCS: 36415; 80053; 81001; 85025; 85610; 87086; 87186; 99283; 99284

== ENCOUNTER 2025-07-27 12:54 | Outpatient (CLI) | payer BC, SELFPAY | END 2025-07-27 12:55 | disposition home or self-care (01) | LOC: AMB 07-31 18:54 | PROVIDERS: PCP Student in an Organized Health Care Education/Training Program; Visit Provider Internal Medicine | DX: T14.8XXA Other injury of unspecified body region, initial encounter (principal); Z98.891 History of uterine scar from previous surgery | CPT/HCPCS: A0998 ==

== ENCOUNTER 2025-07-27 13:54 | Emergency (ER) | payer BC, SELFPAY ==
--- OUTSIDE RECORDS SUMMARY | 2025-07-27 13:56 | XMS_ITS | Clinical Summary ---
Author Organization [facility] Address [address] [place] [address] Care Team Providers Care Air Traffic Systems Technician Name Role Phone Janie Kelley MD Primary Care Prov ider Allergies Active Allergy Reactions Criticality Noted Date Comments Amoxicillin-Pot Clavulanate Vomiting 02/21/20 25 Medications PNV no.95/ferrous fum/folic ac ( ORAL) Take by mouth. Active naloxone (Narcan) 4 mg/actuation nasal sprayIndications:O pioid use disorder, severe, in early remission (HC) Inhale 1 Cache into affected nostril(s) each time if needed [...] Department Care Team Description 07/25/2025 Nurse Triage [facility] [address] [place] [address] Janie Kelley MD Care 07/25/2025 Telephone [facility] [address] [place] [address] Janie Kelley MD 07/22/2025 11:15 AM FACILITY MAINTENANCE MECHANIC Ancillary Procedure [facility] [address] [place] [address] Arrived 07/22/2025 9:50 AM FACILITY MAINTENANCE MECHANIC Office Visit [facility] [address] [place] [address] Janie Kelley MD Care 07/22/2025 Travel 07/15/2025 Lab Requisition [facility] [phone] Dayami Beauchamp MD 07/13/2025 Orders Only [facility] Scanner 1 scan: (1-Ord) [facility] , 07/13/2025 07/12/2025 1:00 PM CDT Nurse/Clinic Staff Only [facility] [address] [place] [address] Procedure (NST) 07/12/2025 Travel 07/09/2025 Orders Only [facility] Scanner 1 scan: (1-Ord) [facility], OB LIMITIED, 07/09/2025 07/09/2025 Telephone [facility] [address] [place] [address] Janie Kelley MD Appointment 07/03/2025 10:40 AM CDT OB Encounter [facility] [address] [place] [address] Janie Kelley MD Care (34 weeks 5 days) 07/03/2025 Travel 06/25/2025 1:15 PM CDT Office Visit [address] [address] Merari Rondon NP Follow Up; Medication Management 06/25/2025 Telephone [facility] [address] [place] [address] Janie Kelley MD Med Change Request (ferrous sulfate ) 06/25/2025 Travel 06/19/2025 10:40 AM CDT OB Encounter [facility] [address] [place] [address] Janie Kelley MD Care (32+5) 06/19/2025 Travel 06/05/2025 10:40 AM CDT OB Encounter [facility] [address] [place] [address] Janie Kelley MD Care (30w 5days//nipple discharge?/US?); Medication Management (Herpes medication start?/medication interfering with /) 06/04/2025 10:15 AM CDT Office Visit [address] [address] Merari Rondon NP Follow Up; Medication Management 06/04/2025 Travel 05/29/2025 3:15 PM CDT Office Visit [facility] [address] [place] [address] Yoel Hope MD Depression (Concerns with depression - patient is , but would like medication to treat this if possible) 05/29/2025 Travel 05/23/2025 1:30 PM CDT Nurse/Clinic Staff Only [facility] [address] [facility] [place] [address] Infusion Therapy (Feraheme 09/19) 05/22/2025 10:40 AM CDT OB Encounter [facility] [address] [place] [address] Janie Kelley MD Care (28 weeks 5 days ) 05/22/2025 Travel 05/15/2025 Nurse Triage [facility] [address] [place] [address] Janie Kelley MD Vaginal Discharge 05/14/2025 Telephone [facility] [address] [place] [address] Janie eKlley MD Injection (Medication); Infusion Therapy 05/08/2025 10:40 AM CDT OB Encounter [facility] [address] [place] [address] Janie Kelley MD Care (26 weeks 5 days /patient states no concerns) 05/08/2025 Travel from Last 3 Months Immunizations Immunization Administration Dates Next Due DTaP 04/28/2010,06/06/2007 [id number] (Pediarix) 06/16/2006,04/15/2006,0 02/16/2006 DTaP-IPV (Kinrix) 06/25/2010 HIB [...] ovary syndrome Mother Good Health Sister 1 Chatnell Good Health Sister 2 Shama Good Health Sister 3 Cristino Relation Name Status Comments Brother Chalin Alive Father Mother Sister 1 Chantell Alive Sister 2 Shama Alive Sister 3 Cristino Alive Social History Tobacco Use Types Packs/Day [...] on file Legal Sex Female 1:46 PM FACILITY MAINTENANCE MECHANIC Gender Identity Not on file Sexual Orientation Not on file Obstetrics History Para Term AB IAB SAB Ectopic Multiple Livin g Live Births 1 0 0 0 0 0 0 0 0 0 0 Date Outcome GA Total Labor Labor/2nd/3rd Weight Sex Type Anes PTL Bertha A1 A5 Name Clin Summary Episode Dates Number of Fetuses Estimated Date of Delivery 12/13/2024 - Present (07/27/2025) 08/09/2025 (set by Surekha Gastelum RN on 12/25/2024 based on Alternate BARTOLOME Entry) Dating Summary Based On BARTOLOME GA Diff Last Menstrual Period on 10/27/2024 08/03/2025 +6d Alternate BARTOLOME Entry 08/09/2025 Working Vitals Pregravid Weight Height TWG (As of 07/27/2025) Pregrav id BMI 1.601 m (5' 3.03) [...] (A60.04) Herpes simplex vulvovaginitis - Referral to HUNTING SALES LEADER to consider ECV vs c/s for breech presentation. - Start valtrex on 07/12, sent prescription to pharmacy. - Reviewed labor precautions. - Return in 2wks for OB FU. Janie Kelley MD .................... 07/03/2025 11:42 AM Progress Notes - OB Encounte r - 06/19/2025 - GA:32w5d 06/19/2025 - 32w5d - Janie Kelley MD S: Patient 19 [...] r - 06/05/2025 - GA:30w5d 06/05/2025 - 30w - Janie Kelley MD S: Patient 19 y.o. at 30w5d here today for routine visit. Doing well, taking PNV's and aspirin. Started on Lexapro on 05/30. Partner states she is less snappy. Has been on for about 1 week. Has colostrum leakage from breast. Has had a couple cramps in the right abdomen lower. 2-3 times. [place] like period cramping, couple minutes. Using nicotine [...] r - 05/22/2025 - GA:28w5d 05/22/2025 - wd - Janie Kelley MD S: [...] r - 05/08/2025 - GA:26w5d 05/08/2025 - w5d - Janei Kelley MD S: Patient 19 y.o. at [...] r - 03/13/2025 - GA:18w5d 03/13/2025 - - Lashell Santillan Patient stopped at my desk to schedule - scheduled 03/27/25 Lashell Santillan .................... 03/13/2025 11:49 AM 03/13/2025 - - Janie Kelley MD S: Patient [...] r - 02/20/2025 - GA:15w5d 02/20/2025 - 15wd - Janie Kelley MD S: Patient 19 [...] in first trimester (HC) (primary encounter diagnosis) (O09.891) High risk teen [...] Depression 2017 DMDD (disruptive mood dysregulation disorder) (HC) 02/16/2022 [...] (Narcan) 4 mg/actuation nasal spray, Inhale 1 Cache into affected nostril(s) each time if needed [...] 12/13/2024 - GA:5w6d 12/13/2024 - 5w6d - Gastelum, Surekha, RN SUBJECTIVE: Cecilia Gonzales is a 18 [...] irregular Past Medical History: . Date Depression 2017 DMDD (disruptive mood dysregulation disorder) (HC) 02/16/2022 [...] of estimated date of delivery: No Thalassemia (Cook Islander, Greenlandic, Mediterranean, or background): MCV less than 80: No Neural tube defect (Meningomyelocele, Spina bifida, or Anencephaly): No Congenital heart defect: No Down syndrome: No Adebayo-Sachs (Ashkenazi Caodaism, Cajun, Hebrew [place]): No Kirt disease (Ashkenazi Caodaism): No Familial dysautonomia (Ashkenazi Caodaism): No Sickle cell disease or trait (): No Hemophilia or other blood disorders: No Muscular dystrophy: No Cystic fibrosis: No Viet's chorea: No Intellectual disability and/or autism: No [...] (Narcan) 4 mg/actuation nasal spray Inhale 1 Cache into affected nostril(s) each time if needed [...] normal first in first trimester (HC) Z34.01 EDUCATION/PATIENT INSTRUCTIONS - Advised patient to start/continue vitamin. - Discussed risk of using alcohol, tobacco, other drugs in . - Discussed healthy lifestyle in . - Provided copy of [facility] book and book inserts, discussed [id number] medications, and follow up. - Encouraged patient to call clinic at [phone] with any vaginal bleeding, fluid leaking from [...] Department Center 01/09/2025 11:45 AM Merari Rondon, FELIX NFLDPS NFLD Verbal Order per Read Back to order urine compliance drug analysis due to patients history. Patient states she has not used any substances or alcohol since 12/09/24 when she had a positive test at home. Surekha Gastelum RN .................... 12/13/2024 11:20 AM Last Filed Vital Signs Vital Sign Reading Time Taken Comments Blood Pressure 111/68 07/22/2025 10:42 AM FACILITY MAINTENANCE MECHANIC Pulse 119 07/22/2025 10:42 AM FACILITY MAINTENANCE MECHANIC Temperature 36.7 C (98 F) 05/29/2025 3:24 PM CDT Respiratory Rate 16 08/19/2023 10:05 AM FACILITY MAINTENANCE MECHANIC Oxygen Saturation 97% 07/22/2025 10:42 AM FACILITY MAINTENANCE MECHANIC Inhaled Oxygen Concentration - - Weight 53.5 kg (118 lb) 07/03/2025 10:47 AM CDT Height 160.1 cm (5' 3.03) 12/13/2024 11:10 AM C DT Body Mass Index - - Plan of Treatment Upcoming Encounters Date Type Department Care Team (Late st Contact Info) Description 07/29/2025 1:00 PM FACILITY MAINTENANCE MECHANIC Office Visit [facility] [address] [place] [address] Janie Kelley MD [address] [place] [address] 08/23/2025 1:25 PM FACILITY MAINTENANCE MECHANIC Office Visit [facility] [address] [facility] [place] [address] Janie Kelley MD [address] [place] [address] Health Maintenance Due Date Last Done Comments [...] PELVIS SOFT TISSUE STAT 07/22/2025 11:07 AM FACILITY MAINTENANCE MECHANIC Problem involving surgical incision PATH TISSUE EXAM [...] US PELVIS SOFT TISSUE (07/22/2025 11:07 AM FACILITY MAINTENANCE MECHANIC) Anatomical Region Laterality Modality Pelvis Ultrasound 07/22/2025 11:1 4 AM FACILITY MAINTENANCE MECHANIC Impressions 07/22/2025 11:14 AM FACILITY MAINTENANCE MECHANIC Complex abdominal wall fluid collection near the scar measures 3.5 x 6.8 x 1.7 cm and may reflect postoperative seroma, hematoma or abscess in the appropriate clinical setting. Dictated by Celso Dean MD @ 07/22/2025 11:14:11 AM Dictated by: Celso Dean MD @ 07/22/2025 11:14:25 (Electronically Signed) Narrative 07/22/2025 11:14 AM FACILITY MAINTENANCE MECHANIC For Patients: As a result of the [...] elsewhere as imaged unremarkable. Procedure Note Celso Dean DO - 07/22/2025 For Patients: As a [...] Dean MD @ 07/22/2025 11:14:25 (Electronically Signed) Janie Kelley MD Fi nal Result * PATH TISSUE EXAM PLACENTA (07/13/2025 8:18 PM CDT) Case Report Pathology Report Case: [id number] Authorizing Provider: Dayami Beauchamp MD Collected: 07/13/20252017 Ordering Location: [facility] Received: 07/15/2025 1532 Pathologist: Korin Bourgeois MD Specimen: Placenta 07/17/2025 2:04 PM CDT [facility] Final Diagnosis A) PLACENTA, [...] diagnostic abnormalities identified 07/17/2025 2:04 PM CDT [facility] at 1404 CDT Comment Circumvallation is the complete or partial insertion of the membranes in the placental disc away from the peripheral margin. It occurs in 1%-7% of all placentas. Such placentas are associated with recurrent vaginal bleeding in all trimesters or chronic marginal abruption. There is an increased risk of intrauterine growth restriction and half-way neurologic impairment, especially when associated with chronic marginal hemorrhages. 07/17/2025 2:04 PM CDT [facility] Clinical Information Indications for [...] No Smoking: No 07/17/2025 2:04 PM CDT [facility] Gross Description A) Received [...] Sectioning reveals a hemorrhagic spongy center throughout Surveyor Instrument Assistant sections are submitted: 1. membranes and insertion 2. Umbilical cord 3. Placenta parenchyma at umbilical cord insertion, full-thickness 4-5. Central placental parenchyma, full-thickness 6. Placenta parenchyma along periphery with circumvallate insertion Time and date in formalin: 1547 on 07/15/2025 TRS 07/15/2025 07/17/2025 2:04 PM CDT [facility] Microscopic Description The final diagnosis is based on microscopic examination of appropriate sections of all specimens. 07/17/2025 2:04 PM CDT [facility] Additional Information Interpreted at [facility] - [address] [facility] [[email or web address] [address] [place] [address] 07/17/2025 2:04 PM CDT [facility] Tissue SPECIMEN FROM PLACENTA / Unknown 07/13/2025 8:18 PM CDT 07/15/2025 3:32 PM CDT us Dayami Beauchamp MD PATHOLOGY/CYTOLOGY Final R esult [facility] [address] [place] [address], * LAB TRACKING EVENT (07/13/2025 8:16 PM CDT) Other (Other) Client Collect / Unknown 07/13/2025 8:16 PM CDT 07/15/2025 1:33 PM CDT us Dayami Beauchamp MD LAB BILL ONLY Final Resu lt [facility] [address] [place] [address], [place] * SCAN-LABORATORY REPORT (07/13/2025 12:00 AM [...] Janie Kelley MD HEMATOLOGY Fi nal Result [facility] [address] [address], * TREPONEMA PALLIDUM (05/08/2025 11:04 AM CDT) TREPONEMA PALLIDUM Non-Reacti ve Non-Reacti ve 05/09/2025 12:54 AM CDT [facility] Blood BLOOD SPECIMEN / Unknown [facility] / Unknown 05/08/2025 11:04 AM CDT 05/08/2025 11:04 AM CDT us Janie Kelley MD SEND OUTS Fi nal Result [facility] [address] [place] [address], * GLUCOSE TOLERANCE, GESTATIONAL SCREEN 1H (05/08/2025 11:04 AM CDT) [facility] GLUCOSE, GESTATIONAL SCREEN (50G)-140 CUTOFF 79 <140 mg/dL 05/09/2025 6:33 AM CDT [facility] Blood BLOOD SPECIMEN / Unknown [facility] / Unknown 05/08/2025 11:04 AM CDT 05/08/2025 11:04 AM CDT Janie Kelley MD CHEMISTRY Fi nal Result Performing Organization Address [facility]/ZIP Co de Phone Number [employer] [facility] [address] [place] [address], * ANTI HCV (12/13/2024 12:14 PM CDT) [facility] HEPATITIS C ANTIBODY NON-REACTI VE NON-REACT AURY [facility] Comment: HCV antibody was non-reactive. There is no laboratory evidence of HCV infection. In most cases, no further action is required. However, if recent HCV exposure is suspected, a test for HCV RNA (test code 02344) is suggested. For additional information please refer to http://education.Photo Rankr.Busy Moos/faq/HIO06n0 (This link is being provided for informational/ educational purposes only.) Blood BLOOD SPECIMEN / Unknown 12/13/2024 12:14 PM CDT 12/13/2024 12:15 PM CDT Janie Kelley MD SEND OUTS Fi nal Result [employer] [facility] [address] [place] [address], [place] [phone] [facility] [address] [place] [address] * ANTI HIV 1/2 (12/13/2024 12:14 PM CDT) HIV AG/AB, 4TH GEN NON-REACT AURY NON-REACT AURY [facility] Comment: HIV-1 antigen and HIV-1/HIV-2 antibodies were [...] purpose. For additional information please refer to http://education.RooT/faq/FRN036 (This link is being provided for informational/ educational purposes only.) The performance of this assay has not been clinically validated in patients less than 2 years old. Blood BLOOD SPECIMEN / Unknown 12/13/2024 12:14 PM CDT 12/13/2024 12:15 PM CDT Janie Kelley MD SEND OUTS Fi nal Result [employer] [facility] [address] [place] [address], [facility] [address] [place] [address] * WEIGH TANK OPERATOR PROBE - GC CHLAMYDIA DNA PCR [[id number]] (12/13/2024 12:10 PM CDT) CHLAMYDIA PROBE Negative 4:18 AM CDT [facility] N GONORRHOEAE PROBE Negative 2024 4:18 AM CDT [facility] Other URINE SPECIMEN / Unknown Non-Blood / Unknown 12/13/2024 12:10 PM CDT 12/13/2024 12:10 PM CDT us Janie Kelley MD MICROBIOLOGY Fi nal Result [facility] [address] [place] [address], from Last 3 Months or Most Recently Relevant to Health Maintenance Insurance [facility] Advance Directives * Full Code (Latest Code Status on File) Date Activated Date Inactivated Comments 11/13/2022 6:40 AM 2022 3:58 PM Question Answer Comments Code Status Discussion: Not Discussed Care Teams Air Traffic Systems Technician Relationship Specialty Start Date End Date [place] [address] PCP - General Family Practice 05/29/25
[2025-07-27 13:59] VITALS: BP 108/74; PULSE 92; RESP 16; TEMP 36.8; O2SAT 98; BMI 19.9
--- NOTE | 2025-07-27 14:18 | ED_ITS ---
HPI - General Adult General Chief complaint: Post Op Complication Stated complaint: Bleeding at site Time Seen by Provider: 07/27/25 14:10 Source: patient Mode of arrival: ambulatory Limitations: no limitations History of Present Illness HPI narrative: 19-year-old female, 2 weeks status post presents today with leaking from her incision. She denies increasing pain. She denies any nausea or vomiting. No fevers or chills. She continues to have vaginal bleeding but is intermittent. She denies any diarrhea or constipation. No pain with urination. Fluid is yellowish and reddish in color. Related Data Home Medications ?Medication ?Instructions ?Recorded ?Confirmed escitalopram oxalate 10 mg tablet 10 mg PO QAM 5 07/25/25 vitamins no.154-ferrous tab PO 07/09/2507/19 fumarate 27 mg-folic acid 1 mg tablet Previous Rx's ?Medication ?Instructions ?Recorded acetaminophen 500 mg tablet 1,000 mg (2 x 500 mg) PO Q 6H PRN 07/16/25 Pain #0 tabs ferrous sulfate 325 mg (65 mg 325 mg PO Q OTHER DAY #2 0 tabs 07/16/25 iron) tablet (FeroSul) ibuprofen 600 mg tablet 600 mg PO Q6H PRN Pain #0 ta bs 07/16/25 nifedipine 30 mg tablet,extended 30 mg PO BID #40 tabs 07/16/25 release cefdinir 300 mg capsule 300 mg PO BID 5 days #10 cap s 07/25/25 Allergies Allergy/AdvReac Type Severity Reaction Status Date / Time amoxicillin Allergy Intermediate Vomiting Verified 07/27/25 14:08 Review of Systems Status of ROS: Reports: 6 or more systems reviewed and unremarkable except as noted in History and below [facility] Medical History premature rupture of membranes (PPROM) with onset of labor within 24 hours of rupture in third trimester, antepartum ?O42.013 - premature rupture of membranes, onset of labor within 24 hours of rupture, third trimester (ICD-10) Anemia affecting ?O99.019 - Anemia complicating , unspecified trimester (ICD-10) Tobacco use affecting , antepartum ?O99.330 - Smoking (tobacco) complicating , unspecified trimester (ICD-10) growth restriction Malpresentation of fetus ?O32.9XX0 - Maternal care for malpresentation of fetus, unspecified, not applicable or unspecified (ICD-10) Family History Other Alzheimers disease Cardiovascular disease Depression High blood pressure Social History Narrative: Lives in [place] with partner Rubén. Not currently employed. No ETOH use. What is your current living situation?: I presently have a place to live Problems where you live: other Problems where you live details: NA In the past 12 months, utilities in danger of being shut off: no In past 12 months, lack of transportation kept you from medical appts, meetings, work, or getting things needed for daily living: no In the past 12 mos, have been you worried that your food would run out before you had money to buy more?: never true In the past 12 mos, the food you bought just didn't last and you didn't have m oney to buy more?: never true Smoking Status: Former smoker How often does anyone, including family, friends and others, physically hurt you : never How often does anyone, including family, friends and others, insult or talk down to you: never How often does anyone, including family, friends and others, threaten you with harm: never How often does anyone, including family, friends and others, scream or curse at you: never Exam Narrative: Exam Narrative: Well-nourished well-developed patient in no acute distress. Alert and oriented. Answers questions appropriately. Mood and affect are appropriate. Thoughts are goal oriented and rational. No tangential or magical thinking noted. Patient speaks in full sentences without needing to catch her breath. HEENT: Normocephalic atraumatic. Pupils are equally round reactive to light. Extraocular muscles are intact. Conjunctivae are moist without any icterus noted. Moist mucous membranes. Abdomen: Soft, minimal tenderness as expected. Incision appears to be healing well except for a pinpoint opening right in the center that is draining serosanguineous fluid. There is no areas of fluctuance. No erythema. Unable to express fluid, minimal amount. Const: Vital Signs, click to edit/add: Vital Signs - 24 hr 07/27/25 13:59 Temperature 98.2 F Pulse Rate [Pulse Oximeter] 92 Respiratory Rate 16 Blood Pressure [Ri ght Upper Arm] 108/74 Pulse Oximetry 98 Oxygen Delivery Me thod Room Air Course Course ED Course: Consulted with Dr. Hardwick, who recommended patient follow-up in the [facility] on Tuesday. Vital Signs Vital signs: Initial Vital Signs Temperature 98.2 F 07/27/25 13:59 Temperature Source Temporal Artery Scan 07/27/25 13:59 Pulse Rate 92 07/27/25 13:59 Respiratory Rate 16 07/27/25 13:59 Blood Pressure 108/74 07/27/25 13:59 Blood Pressure Mean 85 07/27/25 13:59 Blood Pressure Position Sitting 07/27/25 13:59 Pulse Oximetry 98 07/27/25 13:59 Oxygen Delivery Method Room Air 07/27/25 13:59 Vital Signs Temperature 98.2 F 07/27/25 13:59 Pulse Rate 92 07/27/25 13:59 Respiratory Rate 16 07/27/25 13:59 Blood Pressure 108/74 07/27/25 13:59 Pulse Oximetry 98 07/27/25 13:59 Oxygen Delivery Method Room Air 07/27/25 13:59 Temperature 98.2 F 07/27/25 13:59 Pulse Rate 92 07/27/25 13:59 Respiratory Rate 16 07/27/25 13:59 Blood Pressure 108/74 07/27/25 13:59 Pulse Oximetry 98 07/27/25 13:59 Oxygen Delivery Method Room Air 07/27/25 13:59 Medical Decision Making MDM Narrative Medical decision making narrative: Incision drainage. Will follow up with OB on Tuesday. We discussed reasons to return to the emergency department prior to her appointment including redness, pain, purulent drainage or systemic symptoms. Discharge Plan Discharge Clinical Impression: Drainage from wound Patient Disposition: Home, Self-Care Condition: Stable Additional Instructions: Call the OBGYN clinic 1st thing Tuesday morning to be seen on Tuesday for a wound check. Let them know that that was the recommendation from the OBGYN while you were in the emergency department. Return to the emergency department if you develop redness, pus draining from your wound, fevers, chills, nausea or vomiting, or worsening abdominal pain. Prescriptions: No Action escitalopram oxalate 10 mg tablet 10 mg PO QAM PNV no.154-iron fumarate-folic 27 mg iron- 1 mg tablet PO acetaminophen 500 mg Tablet 1,000 mg PO Q6H PRN (Reason: Pain) Qty: 0 0RF ibuprofen 600 mg Tablet 600 mg PO Q6H PRN (Reason: Pain) Qty: 0 0RF nifedipine 30 mg Tablet Extended Release 30 mg PO BID Qty: 40 0RF ferrous sulfate [FeroSul] 325 mg (65 mg iron) tablet 325 mg PO Q OTHER DAY Qty: 20 0RF cefdinir 300 mg capsule 300 mg PO BID 5 Days Qty: 10 0RF Follow Up/Referrals: Janie Kelley MD [Primary Care Provider, Family Practice] Stand Alone [facility] Info Instructions
== END 2025-07-27 14:38 | disposition home or self-care (01) ==
PROVIDERS: Emergency Provider Family Medicine; PCP Student in an Organized Health Care Education/Training Program
DX: O90.0 Disruption of cesarean delivery wound (principal)
CPT/HCPCS: 99282; 99283